=== PATIENT | female | born 1995 | race Asian ===

== ENCOUNTER 2023-03-20 08:00 | Outpatient (CLI) | payer OTHER ==
[2023-03-20 16:03] LABS: BILIRUBIN,URINE NEGATIVE (NEGATIVE); GLUCOSE, URINE (UA) 250 mg/dL (NEGATIVE); KETONES,URINE (UA) NEGATIVE (NEGATIVE); LEUKOCYTE ESTERASE, URINE NEGATIVE (NEGATIVE); NITRITE,URINE NEGATIVE (NEGATIVE); OCCULT BLOOD,URINE NEGATIVE (NEGATIVE); PH,URINE 6.5 PH (5.0-7.5); PROTEIN,URINE NEGATIVE (NEGATIVE); UROBILINOGEN,URINE 0.2 (NORMAL) E.U./dL (NORMAL)
[2023-03-20 16:04] LABS: CLARITY,URINE CLEAR (CLEAR)
[2023-03-20 16:14] LABS: BACTERIA,URINE None Seen /HPF (None Seen); RBC,URINE None Seen /HPF (0-5); SQUAMOUS EPITHELIAL CELL,UR FEW Squamous (<= Few); WBC,URINE 0-3 /HPF (0-5)
== END 2023-03-20 23:59 | disposition home or self-care (01) ==
LOC: LAB.WC 08:00
PROVIDERS: ATTEND Obstetrics & Gynecology
DX: Z34.00 Encounter for supervision of normal first pregnancy, unspecified trimester (principal)
CPT/HCPCS: 81001; 87086

== ENCOUNTER 2023-03-31 12:40 | Outpatient (CLI) | payer OTHER ==
--- NOTE | 2023-03-31 14:25 | Ultrasound Report ---
PROCEDURE: OB First Trimester w/TV INDICATIONS: POSITIVE TEST OUTSIDE/PRIOR DATING DATA: Last menstrual period (LMP): 02/01/2023. LMP-based estimated date of delivery (CODY): 11/08/2023. First dating scan (date and location): 03/31/2023 today. Estimated date of delivery (CODY) from first dating scan: 11/12/2023. TECHNIQUE: Real-time scanning was performed of the fetus and maternal pelvic organs, with image documentation. Endovaginal scanning was also performed to better visualize the fetus and maternal ovaries. COMPARISON: None. FINDINGS: Intrauterine gestational sac present. Embryo: 1.4 cm Heart rate: 153 bpm. Other: Small perigestational hemorrhage measuring 1.9 x 1.5 cm.. Yolk sac is present. Maternal organs: Ovaries appear within normal limits. IMPRESSION: Intrauterine with estimated gestational age is 7 weeks and 5 days. heart motion detec anabella Reviewed by: Willie Catalan MD on 03/31/2023 2:24 PM PST Approved by: Willie Catalan MD on 03/31/2023 2:24 PM PST Station ID: [id number]
== END 2023-03-31 12:41 | disposition home or self-care (01) ==
LOC: DI 12:40
PROVIDERS: ATTEND Obstetrics & Gynecology
DX: Z34.01 Encounter for supervision of normal first pregnancy, first trimester (principal)

== ENCOUNTER 2023-04-14 12:48 | Outpatient (CLI) | payer OTHER ==
[2023-04-14 18:01] LABS: BASOPHILS % (AUTO) 0.6 %; EOSINOPHILS % (AUTO) 0.5 %; HCT - HEMATOCRIT 35.1 % (37.0-47.0); HGB - HEMOGLOBIN 10.7 g/dL (12.0-16.0); LYMPHOCYTES # (AUTO) 1.3 10^3/uL (1.5-3.5); LYMPHOCYTES % (AUTO) 20.4 %; MEAN CORPUSCULAR HEMOGLOBIN 20.7 pg (27.0-31.0); MEAN CORPUSCULAR HGB CONC 30.5 g/dL (32.0-36.0); MONOCYTES # (AUTO) 0.5 10^3/uL (0.0-1.0); MONOCYTES % (AUTO) 6.9 %; NEUTROPHILS # (AUTO) 4.7 10^3/uL (1.5-6.6); NEUTROPHILS % (AUTO) 71.4 %; PLT - PLATELET COUNT 205 10^3/uL (130-450); RED BLOOD COUNT 5.16 10^6/uL (4.20-5.40); RED CELL DISTRIBUTION WIDTH 15.4 % (12.0-15.0); WHITE BLOOD COUNT 6.5 x10^3/uL (4.8-10.8)
[2023-04-14 18:08] LABS: SLIDE REVIEW? Indicated
[2023-04-14 19:06] LABS: PLATELET MORPHOLOGY A (NORMAL)
[2023-04-15 07:09] LABS: HCV AB Non Reactive (Non Reactive)
[2023-04-15 08:09] LABS: HBsAG SCREEN Negative (Negative); RPR Non Reactive (Non Reactive)
[2023-04-15 09:09] LABS: HIV SCREEN 4TH GENERATION Non Reactive (Non Reactive); VARICELLA-ZOSTER AB IGG 2729 index (Immune >165)
== END 2023-04-14 12:49 | disposition home or self-care (01) ==
LOC: LAB.N 12:48
PROVIDERS: ATTEND Obstetrics & Gynecology
DX: Z34.00 Encounter for supervision of normal first pregnancy, unspecified trimester (principal); Z36.89 Encounter for other specified antenatal screening
CPT/HCPCS: 36415; 85025; 86592; 86762; 86787; 86803; 86850; 86900; 86901; 87340; 87389

== ENCOUNTER 2023-04-17 08:00 | Outpatient (CLI) | payer OTHER ==
[2023-04-17 23:25] LABS: CHLAMYDIA TRACHOMATIS DNA NEGATIVE (NEGATIVE); NEISSERIA GONORRHOEAE DNA NEGATIVE (NEGATIVE); TRICHOMONAS VAGINALIS DNA NEGATIVE (NEGATIVE)
== END 2023-04-17 23:59 | disposition home or self-care (01) ==
LOC: LAB.WC 08:00
PROVIDERS: ATTEND Nurse Practitioner
DX: Z11.3 Encounter for screening for infections with a predominantly sexual mode of transmission (principal)
CPT/HCPCS: 87491; 87591; 87661

== ENCOUNTER 2023-05-29 13:06 | Outpatient (CLI) | payer OTHER ==
[2023-05-31 21:08] LABS: AFP MOM 1.02 (.); AFP VALUE 42.5 ng/mL (.); DIA MOM 0.71 (.); DIA VALUE 120.84 pg/mL (.); DSR (BY AGE) 1 IN 930 (.); DSR (SECOND TRIMESTER) 1 IN 10000 (.); GEST. AGE ON COLLECTION DATE 16.7 WEEKS (.); HCG MOM 0.84 (.); HCG VALUE 34897 mIU/mL (.); INSULIN DEP DIABETES No (.); MATERNAL AGE AT EDD 26.9 yr (.); MULTIPLE GESTATION No (.); OPEN SPINA BIFIDA RISK 1 IN 10000 (.); RACE Other (.); RESULTS Report (.); TEST RESULTS *Screen Negative* (.); TRISOMY 18 RISK Not increased (.); UE3 MOM 1.54 (.); UE3 VALUE 1.81 ng/mL (.); WEIGHT 127 lbs (.)
== END 2023-05-29 13:07 | disposition home or self-care (01) ==
LOC: LAB.N 13:06
PROVIDERS: ATTEND Obstetrics & Gynecology
DX: Z36.0 Encounter for antenatal screening for chromosomal anomalies (principal)
CPT/HCPCS: 36415; 81511

== ENCOUNTER 2023-06-23 15:57 | Outpatient (CLI) | payer OTHER ==
--- NOTE | 2023-06-24 19:11 | Ultrasound Report ---
PROCEDURE: OB Anatomy Scan INDICATIONS: SUPERVISION OF OUTSIDE/PRIOR DATING DATA: Last menstrual period (LMP): 02/01/2023. LMP-based estimated date of delivery (CODY): 11/08/2023. First dating scan (date and location): 03/31/2023, [place]. Estimated date of delivery (CODY) from first dating scan: 11/12/2023. The below data below was generated using the clinical CODY of 11/12/2023 TECHNIQUE: Real-time scanning was performed of the fetus, with image documentation and biometric measurements. Endovaginal scanning: Not performed. COMPARISON: OB ultrasound on March 31, 2023 FINDINGS: Markedly limited exam secondary to body habitus/ position. General: A single living intrauterine gestation is present. Presentation: Breech Placenta: Placental position is posterior, without previa. Amniotic fluid index: 10 cm, within normal limits for gestational age. heart rate: 145 beats per minute. Maternal cervical canal: 5.1 cm long; normal length is 2.5 cm or more. biometrics: Biparietal diameter: 4.3 cm, 19 weeks and 0 days, 22.5% Head circumference: 16.6 cm, 19 weeks and 2 days, 23.8% Abdominal circumference: 14.3 cm, 19 weeks and 5 days, 42.9% Femur length: 3.28 cm, 20 weeks and 2 days, 62.3% Estimated gestational age from initial scan: 19 weeks and 5 days Composite gestational age from present scan: 19 weeks and 3 days Estimated weight and percentile: 316.3 g, 53% Measurement variability in biometric dating: +/- 10 days from 12-20 weeks gestation, +/- 2 weeks from 20-30 weeks gestation, +/- 3 weeks at 30 weeks gestation or later. Anatomic survey: Neuro: Ventricles are normal at less than 10 mm. Cisterna magna is normal at 3-11 mm. Cerebellum i s normal in size and morphology. Nuchal skin fold: Normal at less than 6 mm between 14 and 20 weeks gestational age. Face: Bilateral orbits are normal. The nose and lips are not well seen. Spine: No evidence for spina bifida. Heart: Not well seen. Diaphragm: Not well seen. Stomach: Normal. Kidneys: No hydronephrosis. Normal is less than 5 mm in 2nd trimester, less than 7 mm in 3rd trimester. Cord: 3 vessel cord has orthotopic insertion. Bladder: Normal in size. Extremities: Bilateral upper extremities are normal. Bilateral lower extremities are partially visual ized. IMPRESSION: Markedly limited exam secondary to body habitus/ position. 1.Single living intrauterine gestation in breech presentation. Estimated gestational age from current scan is 19 weeks and 3 days. 2.Normal interval growth. 3.The nose/lips, profile, diaphragm, lower extremities and cardiac views are well seen. Attention on follow-up. Reviewed by: Chris Wright MD on 06/24/2023 7:10 PM PST Approved by: Chris Wright MD on 06/24/2023 7:10 PM PST Station ID: [id number]
== END 2023-06-23 15:58 | disposition home or self-care (01) ==
LOC: DI 15:57
PROVIDERS: ATTEND Obstetrics & Gynecology
DX: O32.1XX0 Maternal care for breech presentation, not applicable or unspecified (principal); Z3A.19 19 weeks gestation of pregnancy

== ENCOUNTER 2023-07-10 16:01 | Outpatient (CLI) | payer OTHER ==
--- NOTE | 2023-07-11 11:31 | Ultrasound Report ---
PROCEDURE: OB Follow up INDICATIONS: SUPERVISION OF OUTSIDE/PRIOR DATING DATA: Last menstrual period (LMP): 02/01/2023. LMP-based estimated date of delivery (CODY): 11/08/2023. First dating scan (date and location): 03/31/2023. Estimated date of delivery (CODY) from first dating scan: 11/12/2023. The below data below was generated using the ultrasound CODY of 11/12/2023 TECHNIQUE: Real-time scanning was performed of the fetus, with image documentation and biometric measurements. Endovaginal scanning: Not performed. Exam limited due to positioning. COMPARISON: OB ultrasound 06/23/2023 FINDINGS: General: A single living intrauterine gestation is present. Presentation: Vertex Placenta: Placental position is posterior, without previa. Amniotic fluid index: 13.8 cm, within normal limits for gestational age. Largest pocket 5.2 cm. heart rate: 135 beats per minute. Maternal cervical canal: 4.5 cm long; normal length is 2.5 cm or more. Closed. Estimated gestational age from initial scan: 22 weeks 1 day Other: profile, lower extremities, four-chamber view of the heart, LVOT and diaphragm are seen. RVOT and nose and lips are again not well seen. IMPRESSION: 1. David living intrauterine at 22 weeks 1 day based on prior dating. 2. Normal placenta and amniotic fluid. 3. profile, lower extremities, four-chamber view of the heart, LVOT and diaphragm are within no rmal limits. RVOT and nose and lips are again not well seen due to positioning. Follow-up OB ultrasound is r ecommended. Reviewed by: Leander Choi MD on 07/11/2023 11:30 AM PST Approved by: Leander Choi MD on 07/11/2023 11:30 AM PST Station ID: [id number]
== END 2023-07-10 16:02 | disposition home or self-care (01) ==
LOC: DI 16:01
PROVIDERS: ATTEND Obstetrics & Gynecology
DX: Z34.02 Encounter for supervision of normal first pregnancy, second trimester (principal)

== ENCOUNTER 2023-08-08 11:12 | Outpatient (CLI) | payer OTHER ==
[2023-08-08 17:42] LABS: HCT - HEMATOCRIT 35.6 % (37.0-47.0); HGB - HEMOGLOBIN 10.8 g/dL (12.0-16.0); MEAN CORPUSCULAR HGB CONC 30.3 g/dL (32.0-36.0); MEAN CORPUSCULAR VOLUME 72.5 fL (81.0-99.0); MEAN PLATELET VOLUME 13.3 fL (7.9-10.8); RED BLOOD COUNT 4.91 10^6/uL (4.20-5.40)
== END 2023-08-08 11:13 | disposition home or self-care (01) ==
LOC: LAB.N 11:12
PROVIDERS: ATTEND Obstetrics & Gynecology
DX: Z34.00 Encounter for supervision of normal first pregnancy, unspecified trimester (principal)
CPT/HCPCS: 36415; 82950; 85027

== ENCOUNTER 2023-09-05 08:00 | Outpatient (CLI) | payer OTHER ==
[2023-09-05 18:06] LABS: PROTEIN/CREATININE RATIO,URINE 0.3 (<=0.2)
== END 2023-09-05 23:59 | disposition home or self-care (01) ==
LOC: LAB.WC 08:00
PROVIDERS: ATTEND Nurse Practitioner
DX: R10.11 Right upper quadrant pain (principal)
CPT/HCPCS: 82570; 84156

== ENCOUNTER 2023-10-11 17:04 | Outpatient (CLI) | payer OTHER | END 2023-10-11 17:05 | disposition home or self-care (01) | LOC: LAB.WC 17:04 | PROVIDERS: ATTEND Obstetrics & Gynecology | DX: Z36.85 Encounter for antenatal screening for Streptococcus B (principal) | CPT/HCPCS: 87797 ==

== ENCOUNTER 2023-10-30 08:53 | Outpatient (CLI) | payer OTHER ==
--- NOTE | 2023-10-30 10:49 | Ultrasound Report ---
PROCEDURE: OB Follow up INDICATIONS: EXCESSIVVE WEIGHT GAIN IN OUTSIDE/PRIOR DATING DATA: Last menstrual period (LMP): 02/01/2023. LMP-based estimated date of delivery (CODY): 11/08/2023. First dating scan (date and location): 03/31/2023. Estimated date of delivery (CODY) from first dating scan: 11/12/2023. TECHNIQUE: Real-time scanning was performed of the fetus, with image documentation and biometric measurements. COMPARISON: 07/10/2023 FINDINGS: General: A single living intrauterine gestation is present. Presentation: Vertex Placenta: Placental position is fundal, without previa. Amniotic fluid index: 14.8 cm, within normal limits for gestational age. heart rate: 140 beats per minute. Maternal cervical canal: 4.2 cm cm long; normal length is 2.5 cm or more. BPD is 8.97 cm, 24.7%, 36 weeks and 2 days Head circumference is 33 cm, 19.1%, 37 weeks and 4 days Abdominal circumference is 34.6 cm, 77.9%, 38 weeks and 4 days Femur length is 7.45 cm, 52.6%, 38 weeks and 1 day Estimated gestational age is 38 weeks and 1 day. Biometry today measures 37 weeks and 5 days. EFW at the 60.9 percentile, 3380 g. IMPRESSION: Living intrauterine gestation in vertex presentation. Normal CUONG. EFW at the 60.9 percentile, within normal limits. Reviewed by: Willie Catalan MD on 10/30/2023 10:47 AM PDT Approved by: Willie Catalan MD on 10/30/2023 10:47 AM PDT Station ID: [id number]
== END 2023-10-30 08:54 | disposition home or self-care (01) ==
LOC: DI 08:53
PROVIDERS: ATTEND Obstetrics & Gynecology
DX: O26.03 Excessive weight gain in pregnancy, third trimester (principal); Z3A.38 38 weeks gestation of pregnancy

== ENCOUNTER 2023-11-02 20:35 | Outpatient (CLI) | payer OTHER ==
[2023-11-02 21:23] VITALS: BP 130/74
--- NOTE | 2023-11-06 16:40 | PROCEDURE REPORT ---
- HPI Diagnosis/Indication for NST: Other (contractions) Current EDU 11/08/23 Gestation 39 Weeks and 1 Days 1 Para 0 Vital Signs Temperature 98.6 F 11/02/23 20:48 Heart Rate 78 11/02/23 20:48 Respiratory Rate 17 11/02/23 20:48 Blood Pressure 144/85 H 11/02/23 20:48 Temperature 98.7 F 11/02/23 21:14 Heart Rate 77 11/02/23 21:14 Respiratory Rate 17 11/02/23 20:48 Blood Pressure 130/74 11/02/23 21:14 O2 Saturation If not protocol: Oxygen Flow, liters/minute - NST Procedure NST Procedure Start Date 11/02/23 Start Time 20:48 Stop Time 21:10 Vibroacoustic Stimulation Used No Patient States Movement Yes - Results and Plan Findings/Impression: Reactive, Cat 1 Plan: Follow up as scheduled. Labor precautions.
== END 2023-11-02 21:16 | disposition home or self-care (01) ==
LOC: WFO 20:35 → FBP 20:37 → WFO 21:16
PROVIDERS: ATTEND Obstetrics & Gynecology
DX: O47.1 False labor at or after 37 completed weeks of gestation (principal); Z3A.39 39 weeks gestation of pregnancy
CPT/HCPCS: 59025; 99213

== ENCOUNTER 2023-11-03 00:44 | Inpatient (IN) | payer OTHER ==
[2023-11-03] MEDS ORDERED: LACTATED RINGERS 1,000 ML ONE (01:05)
[2023-11-03] MEDS ORDERED: LABETALOL 20 MG/4 ML SYRINGE IVP PRN ×3 (01:10)
[2023-11-03] MEDS ORDERED: miSOPROStoL 200 MCG TABLET BC PRN (01:10)
[2023-11-03] MEDS ORDERED: TRANEXAMIC ACID IN NACL 1,000 MG/100 ML BAG IV PRN (01:10)
[2023-11-03] MEDS ORDERED: miSOPROStoL 200 MCG TABLET PR PRN (01:10)
[2023-11-03] MEDS ORDERED: OXYTOCIN 10 UNIT/ML VIAL IM PRN (01:10)
[2023-11-03] MEDS ORDERED: TERBUTALINE 1 MG/ML VIAL SUBQ PRN (01:10)
[2023-11-03] MEDS ORDERED: METHYLERGONOVINE 0.2 MG/ML VIAL IM PRN (01:10)
[2023-11-03] MEDS ORDERED: hydrALAZINE INJ 20 MG/ML VIAL IVP PRN ×2 (01:10)
[2023-11-03] MEDS ORDERED: NIFEdipine 10 MG CAPSULE PO PRN (01:10)
[2023-11-03] MEDS ORDERED: SODIUM CHLORIDE FLUSH 0.9% 10 ML SYRINGE IVP PRN (01:10)
[2023-11-03] MEDS ORDERED: lidocaine 1% 20 ML MDV ID PRN (01:10)
[2023-11-03] MEDS ORDERED: CARBOPROST TROMETHAMINE 250 MCG/ML VIAL IM PRN (01:10)
[2023-11-03] MEDS: fentaNYL 100 MCG/2 ML VIAL IVP PRN (01:22)
[2023-11-03 01:38] LABS: BASOPHILS % (AUTO) 0.2 %; EOSINOPHILS # (AUTO) 0.1 10^3/uL (0.0-0.7); EOSINOPHILS % (AUTO) 0.3 %; HCT - HEMATOCRIT 36.3 % (37.0-47.0); HGB - HEMOGLOBIN 11.4 g/dL (12.0-16.0); LYMPHOCYTES # (AUTO) 2.2 10^3/uL (1.5-3.5); LYMPHOCYTES % (AUTO) 13.4 %; MEAN CORPUSCULAR HEMOGLOBIN 22.4 pg (27.0-31.0); MEAN CORPUSCULAR HGB CONC 31.4 g/dL (32.0-36.0); MEAN CORPUSCULAR VOLUME 71.5 fL (81.0-99.0); MONOCYTES # (AUTO) 1.2 10^3/uL (0.0-1.0); MONOCYTES % (AUTO) 7.2 %; NEUTROPHILS # (AUTO) 12.5 10^3/uL (1.5-6.6); NEUTROPHILS % (AUTO) 77.2 %; PLT - PLATELET COUNT 189 10^3/uL (130-450); RED BLOOD COUNT 5.08 10^6/uL (4.20-5.40); RED CELL DISTRIBUTION WIDTH 15.1 % (12.0-15.0); WHITE BLOOD COUNT 16.2 x10^3/uL (4.8-10.8)
[2023-11-03] MEDS ORDERED: SODIUM CHLORIDE FLUSH 0.9% 10 ML SYRINGE IVP SCH (02:00)
[2023-11-03] MEDS ORDERED: ROPIVACAINE 0.2% 200 MG/100 ML BAG EP ONE (02:12)
[2023-11-03] MEDS ORDERED: LIDOCAINE 2%-EPI 1:100000 20 ML MDV ONE (02:12)
--- NOTE | 2023-11-03 02:18 | HISTORY & PHYSICAL EXAMINATION ---
Admit History - Visit Reason Visit Reason: Contractions - : 1 Parity: 0 Premature: 0 Ectopic: 0 : 0 Care: positive: [facility] Risk/History: positive: None Complications This : positive: None Smoking Status: Never smoker - Mother's Labs Mother's Blood Type: positive: O Mother's RH: positive: Positive GBS: positive: Group B Step Negative Rubella Status: positive: Immune - Other Maternal History Other Maternal History: HPI: This 27yo @ 39+2weeks by LMP and confirmed by 7+5 week ultrasound. She started aleksandra yesterday about 1700 after SVE/ membrane sweep in clinic. She had came to triage yesterday evening but remained unchanged and opted to labor at home until things intensified. Her water broke spontaneous at about 0000 (clear) and she presented to L&D shortly thereafter at 0051. Upon return to L&D her cervix was 6/80/-2 and vertex. She has been a patient of [facility] women[facility] for the duration of her which has remained uncomplicated. No Headache, visual changes or right upper quadrant abdominal pain. Denies nausea and vomiting. Denies urinary urgency or dysuria. ROS: All other symptoms reviewed and were negative except per HPI. LMP: 02/01/2023 CODY by LMP: 11/08/2023 Initial US Date 03/31/2023, US Age 7 weeks 5 days, CODY by ultrasound: 11/12/2023 Final CODY: 11/08/2023 OB Hx: G1: Current Medical Hx: No significant Surgical Hx: None Social Hx: Monogamous with male partner. Stopped drinking alcohol due to . Denies current use of tobacco, marijuana or other recreational drugs. Former tobacco user. Reports that she is safe in current relationship. Family Hx: Denies family history of congenital anomalies, Cystic Fibrosis or chromosomal abnormalities Allergies: NKDA Medications: PNV, FeSO4 FOB: Vaibhav (pronounced "October") - in the [employer] - deploys in October - getting back from last minute detachment 3 jun. - her mom will come after the baby is born. Excessive maternal weight gain - Growth US 10/29 vertex, CUONG wnl, EFW 60.9%ramses Wakefield is a nurse at the hospital med surg. Pre- Weight: 128 BMI: 20.86 Blood type: O+ Antibody: negative CBC: PLT 205 HCT 35.1 HGB 10.7 RUB: immune VZV: immune HBsAg: negative HepC: N-R RPR/AB-EIA: N-R HIV: N-R PAP: can't recall when- denies any abnormals. Will discuss again PP. GC/CT: Negative HSV: denies Genetic testing:QUAD -Negative Covid: vaccinated Flu:2022 FAS: ordered 05/19-scheduled 06/23 @1615 Placenta: posterior w/o previa Cord:3VC CUONG: 10cm EFW:316.3g 53rd%ile Nose/lips, profile, diaphragm, lower extremities, and cardiac views not well seen F/U US 07/10- RVOT, nose/lips not well seen again. Profile, lower extremities, 4 chamber heart, LVOT and diaphragm WNL~ recommend another f/u. 07/24/23- FAS MFM WNL 50gm OGCT:84 TDAP:Given 08/24 Breast Pump:08/07 3rd trimester H/H 10.8/35.6 PLT 205 GBS: negative Physical exam: Normocephalic, atraumatic Heart RRR w/o M/G/R Lungs CTAB Abdomen gravid, soft, nontender. EFW 3000g FHR baseline 140, moderate variability, + accelerations, early decelerations Contractions palpate moderate every 2.5-3 minutes with soft resting tone SVE 6/80/-2, vertex, ruptured (clear) Bilateral LE's no edema Mood is good. Assessment: 27 yo @ 39+2 weeks gestation by LMP, confirmed by 7+5 wk U/S Active labor FHR 140, Cat I GBS NEG Plan: Admit to [facility] for Expectant management Epidural per maternal request. Intermittent monitoring. Continuous monitoring after epidural and when otherwise indicated. Anticipate . DICK Silva, Student Nurse Helper Shear Operator - [facility] Current EDU 11/08/23 Gestation 39 Weeks and 2 Days 1 Vital Signs Temperature 36.8 C 11/03/23 00:58 Temperature 36.8 C 11/03/23 01:33 Heart Rate 81 11/03/23 01:33 Respiratory Rate 17 11/03/23 01:33 Blood Pressure 133/80 H 11/03/23 01:33 O2 Saturation If not protocol: Oxygen Flow, liters/minute - NST Procedure NST Procedure Start Time 20:48 Stop Time 21:10 Meds/Allgy - Home Medications Home Medications: Ambulatory Orders Medication Instructions Recorded Confirmed Ferrous Sulfate [Feosol] 11/03/23 No122/Iron/Folic Acid 1 each PO 11/03/23 [ Multi Tablet] - Allergies Allergies/Adverse Reactions: Allergies Allergy/AdvReac Type Severity Reaction Status Date / Time No Known Drug Allergies Allergy Verified 11/03/23 01:45 Physical - Abdominal Exam Vital Signs: Temp Pulse Resp BP Pulse Ox O2 Flow Rate 36.8 C 81 17 133/80 H 11/03/23 01:33 11/03/23 01:33 11/03/23 01:33 11/03/23 01:33 Contraction Frequency (min/apart): 2-3.5 Contraction Intensity: positive: Strong Uterine Resting Tone: positive: Soft - Monitoring Heart Rate Baseline: 140 Strip Review: positive: Category I - Presentation Presentation: positive: Vertex - Vaginal Exam Membranes: positive: Membranes ruptured Dilation (in cm): 6 Effacement (%): 80 Station: positive: -2 - Speculum Exam Speculum Exam Performed: positive: No Plan for Labor - Plan For Labor I expect patient to be DC'd or transferred within 96 hours.: Yes
[2023-11-03] MEDS: LACTATED RINGERS 1,000 ML IV PRN (02:26)
[2023-11-03] MEDS ORDERED: METOCLOPRAMIDE 10 MG/2 ML VIAL IVP PRN (03:30)
[2023-11-03] MEDS ORDERED: ePHEDrine 50 MG/ML VIAL IVP PRN (03:30)
[2023-11-03] MEDS ORDERED: ROPIVACAINE 0.2% 200 MG/100 ML BAG EP PRN (03:30)
[2023-11-03] MEDS ORDERED: diphenhydrAMINE INJ 50 MG/ML VIAL IVP PRN (03:30)
[2023-11-03] MEDS ORDERED: NALBUPHINE 10 MG/ML AMP IVP PRN (03:30)
[2023-11-03] MEDS ORDERED: NALOXONE 0.4 MG/ML VIAL IVP PRN (03:30)
[2023-11-03] MEDS ORDERED: ONDANSETRON 4 MG/2 ML VIAL IVP PRN (03:30)
--- NOTE | 2023-11-03 03:33 | ANESTHESIA ---
Pre-Anesthesia VS, & Labs - Diagnosis active labor pain - Procedure labor epidural Vital Signs: Temp Pulse Resp BP Pulse Ox O2 Flow Rate 36.8 C 81 17 133/80 H 11/03/23 01:57 11/03/23 01:57 11/03/23 01:57 11/03/23 01:57 Height: 5 ft 6 in Weight (kg): 77.111 kg Body Mass Index: 27.4 BMI Classification: Overweight - NPO Other - Is Patient ?: Yes - Lab Results Current Lab Results: Laboratory Tests 11/03/23 01:10: WBC 16.2 H, RBC 5.08, Hgb 11.4 L, Hct 36.3 L, MCV 71.5 L, MCH 22.4 L, MCHC 31.4 L, RDW 15.1 H, Plt Count 189, MPV TNP, Neut # (Auto) 12.5 H, Lymph # (Auto) 2.2, [place] # (Auto) 1.2 H, Eos # (Auto) 0.1, Baso # (Auto) 0.0, Absolute Nucleated RBC 0.00, Nucleated RBC % 0.0 11/03/23 01:10: Blood Type O POSITIVE, Antibody Screen NEGATIVE Fish Bones: 11/03/23 01:10 Home Medications and Allergies Home Medications: Ambulatory Orders Ferrous Sulfate [Feosol] 11/03/23 No122/Iron/Folic Acid [ Multi Tablet] 1 each PO 11/03/23 Active Medications Carboprost Tromethamine (Carboprost Tromethamine 250 Mcg/Ml Vial) 250 mcg IM .ONCE PRN PRN Reason: Hemorrhage Fentanyl (Fentanyl 100 Mcg/2 Ml Vial) 50 mcg IVP Q1H PRN PRN Reason: Severe Pain (score 7-10) Last Admin: 11/03/23 01:22 Dose: 50 mcg Hydralazine HCl (Hydralazine Inj 20 Mg/Ml Vial) 5 - 10 mg IVP Q20M PRN; Protocol PRN Reason: SBP> or= 160 OR DBP> or= 110 Hydralazine HCl (Hydralazine Inj 20 Mg/Ml Vial) 10 mg IVP .ONCE PRN; Protocol PRN Reason: SBP> or= 160 OR DBP> or= 110 Lactated Ringer's (Lr) 500 mls @ 999 mls/hr IV PRN PRN PRN Reason: see comments Last Admin: 11/03/23 03:11 Dose: 999 mls/hr Oxytocin/Sodium Chloride (Pitocin/Sodium Chloride) 500 mls @ 999 mls/hr IV PRN PRN; Protocol PRN Reason: POST- HEMORR PREVENTION Tranexamic Acid (Tranexamic 1,000 Mg/100ml-Nacl) 1,000 mg in 100 mls @ 600 mls/hr IV Q30M PRN PRN Reason: EBL >1200mL and within 3hr Labetalol HCl (Labetalol 20 Mg/4 Ml Syringe) 20 - 80 mg IVP Q10M PRN; Protocol PRN Reason: SBP> or= 160 OR DBP> or= 110 Labetalol HCl (Labetalol 20 Mg/4 Ml Syringe) 20 mg IVP .ONCE PRN; Protocol PRN Reason: SBP> or= 160 OR DBP> or= 110 Labetalol HCl (Labetalol 20 Mg/4 Ml Syringe) 20 - 40 mg IVP Q10M PRN; Protocol PRN Reason: SBP> or= 160 OR DBP> or= 110 Lidocaine HCl (Lidocaine 1% 20 Ml Mdv) 20 ml ID .ONCE PRN PRN Reason: PERINEAL REPAIR Stop: 11/06/23 01:10 Methylergonovine Maleate (Methylergonovine 0.2 Mg/Ml Vial) 0.2 mg IM .ONCE PRN PRN Reason: Hemorrhage Misoprostol (Misoprostol 200 Mcg Tablet) 600 mcg BC .ONCE PRN PRN Reason: Hemorrhage Misoprostol (Misoprostol 200 Mcg Tablet) 800 mcg [place] .ONCE PRN PRN Reason: Hemorrhage Nifedipine (Nifedipine 10 Mg Capsule) 10 - 20 mg PO Q20M PRN; Protocol PRN Reason: SBP> or= 160 OR DBP> or= 110 Oxytocin (Oxytocin 10 Unit/Ml Vial) 10 unit IM .ONCE PRN PRN Reason: Step One if no IV access. Sodium Chloride (Sodium Chloride Flush 0.9% 10 Ml Syringe) 10 ml IVP PRN PRN PRN Reason: NEEDED PER PROVIDER ORDERS Sodium Chloride (Sodium Chloride Flush 0.9% 10 Ml Syringe) 10 ml IVP Q8H PATTI Terbutaline Sulfate (Terbutaline 1 Mg/Ml Vial) 0.25 mg SUBQ .ONCE PRN PRN Reason: Tachystole Ferrous Sulfate [Feosol] 06/21/24 No122/Iron/Folic Acid [ Multi Tablet] 1 each PO 11/03/23 Allergies/Adverse Reactions: Allergies Allergy/AdvReac Type Severity Reaction Status Date / Time No Known Drug Allergies Allergy Verified 11/03/23 01:45 Anes History & Medical History - Anesthetic History Anesthesia Complications: reports: No previous complications Family history of Anesthesia Complications: Denies Family history of Malignant Hyperthermia: Denies - Medical History Cardiovascular: reports: None Pulmonary: reports: None Gastrointestinal: reports: None Urinary: reports: None Neuro: reports: None Musculoskeletal: reports: None Endocrine/Autoimmune: reports: None Blood Disorders: reports: None Skin: reports: None Smoking Status: Never smoker Psychosocial: reports: No issues indicated - Obstetrical History : 1 Parity: 0 Events: reports: None Complications: reports: None Exam General: Alert, Oriented x3, Cooperative Dental: WNL Mouth Openin Fingerbreadth Neck Mobility: Normal Mallampati classification: I Thyromental Distance: 4-6 cm Respiratory: Lungs clear Cardiovascular: Regular rate Plan Anesthesia Type: Epidural Consent for Procedure(s) Verified and Reviewed: Yes Code Status: Attempt Resuscitation ASA classification: 2-Mild systemic disease Is this case an emergency?: No
--- NOTE | 2023-11-03 04:45 | PROVIDER PROGRESS NOTE ---
Labor Progress Note - Uterine Monitoring Uterine Monitoring Mode: positive: External toco Contraction Frequency (min/apart): 2-3 Contraction Intensity: positive: Strong Uterine Resting Tone: positive: Soft - Monitoring Monitor Mode: positive: External ultrasound Heart Rate Baseline: 135-140 Heart Rate Variability: positive: Moderate (6-25 bmp) Accelerations: positive: Present, 15x15 Decelerations: positive: Late, Variable Strip Review: positive: Category I, Category II - Vaginal Exam Dilation (in cm): 8 Effacement (%): 100 Station: -2 - Labor Progress Note Labor Progress Note/Additional Text: S: Right side lying. Comfortable with epidural. Dozing. Frequent peanut ball and other position changes with RN. O: FHR baseline 140, moderate variability, + accels, + early decels, intermittent variables with resolution to baseline Overall reassuring with moderate variability maintained throughout. Contractions palpate strong with soft resting tone. SVE 8/100/-2 Vertex. Membranes membranes ruptured A: 27yo @ 39+2wks gestation spontaneous labor onset and progression. FHR 135-140, Category I-II GBS neg P: Continuous monitoring. Maintain epidural for labor anesthesia. maintain epidural for pain management encourage rotations in bed on peanut ball Anticipate . DICK Silva, Student Nurse Director Of Promotions
[2023-11-03] MEDS: OXYTOCIN/SODIUM CHLORIDE 500 ML IV PRN (06:55)
--- NOTE | 2023-11-03 07:22 | DELIVERY NOTE ---
<Lucia Finn - Last Filed: 11/03/23 07:20> Delivery Note - Labor Labor: positive: Spontaneous - Infant Delivery Method Delivery Method: positive: Spontaneous vaginal delivery - Presentation Presentation: positive: Vertex, OA - occiput anterior - Nuchal Cord Nuchal Cord: positive: None - Anesthetic Anesthetic Type: - Amniotic Fluid Description Amniotic Fluid Description: positive: Clear - Episiotomy Type Episiotomy Type: positive: None - Laceration Laceration: positive: 2nd degree, Labial, Perineal - Suture Suture Type: positive: Vicryl, Chromic Suture Size: positive: 2-0, 3-0 - Delivery Outcome Delivery Outcome: positive: Livebirth - : positive: Placed in direct skin contact with mother, Bulb syringe, Warmed, [place] used [place] sex: positive: Female - Cord Cord: positive: 3 vessels - Placenta Placenta: positive: Manual removal - Estimated Blood Loss Estimated Blood Loss (in cc): 800 - Delivery Comments (Free Text/Narrative) Delivery Comments (Free Text/Narrative): This 27 -year-old, G 1 P 0 @ 39+2 weeks gestation by 1st trimester u/s presented on 11/03/2023 @ 0051 time in active labor and in good condition. Cervix was 6/80/-2 and Vertex presentation by exam. GBS NEGATIVE. Labor progressed without augmentation. FHR pattern demonstrated 135-145 baseline with primarily category I tracing. Normal labor course. Epidural placed upon maternal request. SROM @ 0000 prior to her arrival. She then progressed to complete/complete @ 0509 and ready to deliver. second stage began @ 0520. : Normal spontaneous vaginal delivery of a viable female infant on 11/03/2023 @ 0610 no Nuchal corD. The was placed on maternal abdomen, st imulated, dried and placed skin to skin. Apgars 9 @ 1 min, and 9 @ 5 minutes. Pitocin administered via IV for hemostasis. The umbilical cord was allowed to stop pulsating at which time it was doubly clamped by delivering provider and cut by FOB. 3VC. Cord blood was obtained. Fundal massage and gently cord traction applied for active management of the third stage, placenta delivered spontaneously @ 0616. Later, a small retained fragment was removed by manual sweep. See MD addendum. EBL 800ML , primary source of blood loss = labial laceration. Placenta was WAS NOT sent to pathology. Thirty units of Pitocin were added to the IV fluid and allowed to run freely. A second bag of 30 of pit was also infused. Uterine massage was performed until uterus was deemed firm. Inspection of the perineum noted a 2nd degree perineal laceration and bilateral 1st degree labial tears. Repaired by . See MD addendum. Upon re-inspection the patient was hemostatic. Uterus again massaged and found to be firm. Needle and sponge counts were correct. Fourth stage: Uterine fundus firm and there is no excessive bleeding. The perineum, vagina and cervix were inspected and found to be intact. Vaginal and rectal examination following the repair was done. Tissues well approximated. /skin to skin initiated. Family bonding well. Both mother and baby are in stable condition. DICK Silva, Student Nurse Ice Cream Freezer Helper <Leann Li - Last Filed: 11/03/23 07:51> Delivery Note - Delivery Comments (Free Text/Narrative) Delivery Comments (Free Text/Narrative): I was present and participated in with DICK Silva and midwifery student. uncomplicated. 2nd degree laceration and bilateral labial lacerations noted. Due to very briskly bleeding laceration, I performed repair. 2nd degree laceration was repaired in the standard fashion. After completion of 2nd degree repair, increased bleeding was noted from the uterus and a uterine sweep was performed with small amount of membrane noted, no other retained tissue felt. I requested another bag of pitocin be administered. Repair was disrupted during uterine sweep and the 2nd degree laceration was re-approximated again. Left labial laceration also briskly bleeding and figure of eight stitch followed by running stitch was placed. Small oozing noted and pressure placed for several minutes. Hemostasis then achieved. Right labial laceration hemostatic and not repaired. Perineal hemostasis and good uterine tone noted at completion of procedure. Total EBL 800cc mostly from very briskly bleeding lacerations. Leann Li MD
[2023-11-03] MEDS ORDERED: HYDROCORTISONE 1% CREAM 28 GM TUBE PR PRN (08:39)
[2023-11-03] MEDS: ACETAMINOPHEN 500 MG TABLET PO SCH (09:11)
[2023-11-03] MEDS: IBUPROFEN 600 MG TABLET PO SCH (09:11)
--- NOTE | 2023-11-03 11:33 | PHARMACY PROGRESS NOTE ---
- Best Possible Medication History Admit Date and Time: 11/03/23 0110 Processed by: Pharmacy Secondary Source(s): Physician records As the person ultimately responsible for medication therapy, providers are able to order a medication from an existing home medication list in [facility] via the "Reconcile Routine" prior to Confirmation of that medication by support engineer. Such practice is discouraged except when the physician, in their clinical judgment, deems that a medical need exists for a medication without regard to previous use.
[2023-11-03] MEDS: WITCH HAZEL/GLYCERIN 1 PAD TOP PRN (12:48)
--- NOTE | 2023-11-03 12:50 | PROVIDER PROGRESS NOTE ---
Subjective - Prog Note Date Prog Note Date: 11/03/23 Prog Note Time: 12:48 - Subjective Pt reports feeling: Improved Subjective: Subjective: Patient reports she is doing well. Comfortable WITHOUT narcotic pain management Feels she may still be having some pain relief from epidural Lochia appropriate. Denies heavy bleeding. has not yet gotten out of bed. Plan established with RN to ambulate after lunch Tolerating oral intake. Diet: Regular. Has not yet voided post delivery. Patient is bonding with baby in room Objective - Vital Signs/Intake & Output Reviewed Vital Signs: Yes Vital Signs: Vital Signs x48h Temp 11/03/23 12:32 37.1 C Intake & Output: Intake & Output 10/31/23 11/01/23 11/02/23 11/03/23 23:59 23:59 23:59 23:59 Intake Total 500 Output Total 500 Balance 0 - Objective General Appearance: positive: No acute distress Eyes Bilateral: positive: Normal inspection Neck: positive: Nml inspection Respiratory: positive: No respiratory distress Skin: positive: Color nml, No rash, Warm Extremities: positive: Nml appearance Neurologic/Psychiatric: positive: Oriented x3, Motor nml, Sensation nml, Mood/affect nml - Lab Results Fish Bones: 11/03/23 01:10 Other Labs: Lab Results x24hrs 11/03/23 11/03/23 Range/Units 01:10 01:10 WBC 16.2 H (4.8-10.8) x10^3/uL RBC 5.08 (4.20-5.40) 10^6/uL Hgb 11.4 L (12.0-16.0) g/dL Hct 36.3 L (37.0-47.0) % MCV 71.5 L (81.0-99.0) fL MCH 22.4 L (27.0-31.0) pg MCHC 31.4 L (32.0-36.0) g/dL RDW 15.1 H (12.0-15.0) % Plt Count 189 (130-450) 10^3/uL MPV TNP Neut # (Auto) 12.5 H (1.5-6.6) 10^3/uL Lymph # (Auto) 2.2 (1.5-3.5) 10^3/uL [place] # (Auto) 1.2 H (0.0-1.0) 10^3/uL Eos # (Auto) 0.1 (0.0-0.7) 10^3/uL Baso # (Auto) 0.0 (0.0-0.1) 10^3/uL Absolute Nucleated RBC 0.00 x10^3/uL Nucleated RBC % 0.0 /100WBC Blood Type O POSITIVE Antibody Screen NEGATIVE - Other Results/Comments Other Results/Comments: Abdomen: Uterus firm. Below umbilicus. No guarding or rebound tenderness. ABX Reporting Has patient been on IV antibiotics over the past 48 hours?: No Assessment/Plan - Problem List (1) Vaginal delivery Impression: Assessment and Plan 27yo s/p the morning of 11/03/2023 - doing well - Routine care - Anticipate discharge tomorrow (2) Patient is a currently breast-feeding mother Impression: support as needed (3) Perineal laceration complicating delivery Impression: 2nd degree perineal laceration and bilateral labial lacerations. recommend continued scheduled IBU and tylenol x 48 hours. Continue with ice, topical management, standard perineal care (4) Blood loss Impression: CBC ordered for tomorrow am Will recommend continued iron supplementation . Standard Fall precautions
[2023-11-04 07:45] LABS: BASOPHILS % (AUTO) 0.3 %; EOSINOPHILS # (AUTO) 0.1 10^3/uL (0.0-0.7); EOSINOPHILS % (AUTO) 0.4 %; HCT - HEMATOCRIT 20.8 % (37.0-47.0); LYMPHOCYTES # (AUTO) 1.9 10^3/uL (1.5-3.5); MEAN CORPUSCULAR HEMOGLOBIN 22.5 pg (27.0-31.0); MEAN CORPUSCULAR HGB CONC 30.8 g/dL (32.0-36.0); MEAN PLATELET VOLUME 12.4 fL (7.9-10.8); MONOCYTES # (AUTO) 0.8 10^3/uL (0.0-1.0); MONOCYTES % (AUTO) 6.4 %; NEUTROPHILS # (AUTO) 9.8 10^3/uL (1.5-6.6); PLT - PLATELET COUNT 146 10^3/uL (130-450); RED BLOOD COUNT 2.85 10^6/uL (4.20-5.40); RED CELL DISTRIBUTION WIDTH 15.3 % (12.0-15.0); WHITE BLOOD COUNT 12.9 x10^3/uL (4.8-10.8)
[2023-11-04 07:51] LABS: HGB - HEMOGLOBIN 6.4 g/dL (12.0-16.0)
--- NOTE | 2023-11-04 09:57 | PROVIDER PROGRESS NOTE ---
<Lucia Finn - Last Filed: 11/04/23 10:41> Subjective - Prog Note Date Prog Note Date: 11/04/23 Prog Note Time: 09:42 - Subjective Pt reports feeling: No change Subjective: Subjective: Feeling tired, spent most of the night feeding baby and did not sleep well through the night. Feeling lightheaded and easily fatigued. Not feeling dizzy. Comfortable WITHOUT pain management Ambulating. Tolerating oral intake. Diet: Regular. Voiding without difficulty. Passing flatus. Denies BM. Patient is bonding with baby in room Breast feeding going okay. Difficulty with latch and sustained feeding through the night. Supplementing with formula this morning. Objective - Vital Signs/Intake & Output Reviewed Vital Signs: Yes Vital Signs: Vital Signs x48h Temp Pulse Resp BP 11/04/23 03:41 37.0 C 88 16 121/74 Intake & Output: Intake & Output 11/01/23 11/02/23 11/03/23 11/04/23 23:59 23:59 23:59 23:59 Intake Total 1500 Output Total 2300 Balance -800 - Objective Cardiovascular: positive: Tachycardia Skin: positive: Color nml Extremities: positive: Non-tender Neurologic/Psychiatric: positive: Oriented x3 - Lab Results Fish Bones: 11/04/23 07:06 Other Labs: Lab Results x24hrs 11/04/23 Range/Units 07:06 WBC 12.9 H (4.8-10.8) x10^3/uL RBC 2.85 L (4.20-5.40) 10^6/uL Hgb 6.4 L* (12.0-16.0) g/dL Hct 20.8 L (37.0-47.0) % MCV 73.0 L (81.0-99.0) fL MCH 22.5 L (27.0-31.0) pg MCHC 30.8 L (32.0-36.0) g/dL RDW 15.3 H (12.0-15.0) % Plt Count 146 (130-450) 10^3/uL MPV 12.4 H (7.9-10.8) fL Neut # (Auto) 9.8 H (1.5-6.6) 10^3/uL Lymph # (Auto) 1.9 (1.5-3.5) 10^3/uL [place] # (Auto) 0.8 (0.0-1.0) 10^3/uL Eos # (Auto) 0.1 (0.0-0.7) 10^3/uL Baso # (Auto) 0.0 (0.0-0.1) 10^3/uL Absolute Nucleated RBC 0.00 x10^3/uL Nucleated RBC % 0.0 /100WBC - Other Results/Comments Other Results/Comments: Objective General: Alert, oriented, no apparent distress. Lungs: No increased work of breathing. ABX Reporting Has patient been on IV antibiotics over the past 48 hours?: No Assessment/Plan - Problem List (1) Vaginal delivery Impression: Assessment and Plan day 1. 27yo s/p on 11/03/23 following spontaneous labor. - Routine care - See blood loss re: blood transfusion - Anticipate discharge tomorrow (2) Patient is a currently breast-feeding mother Impression: support by RN team continues Some challenges with latch and sustained feeding infant 5% weight loss formula supplementation this morning. Likely to remain inpatient for additional day for continued support and monitoring of feeds/weight (3) Perineal laceration complicating delivery Impression: 2nd degree perineal laceration and bilateral labial laceration with EBL 800, requiring significant repair. Patient self care, reports edema and tenderness but pain otherwise managed with scheduled IBU, tylenol, ice and other topical care. Able to sit in bed and recliner. sleeps better out of hospital bed but feels her bottom is otherwise healing well. (4) Blood loss Impression: Anemia related to acute blood loss. -hgb decrease 11.4g/dL on admission to 6.4g/dL ppd #1 -hct decrease 36.3% on admission to 20.8% ppd #1 . -tachycardia, pulse 112bpm at the time of rounding. See RN vital sign documentation -easily fatigued. -Discussed IV iron vs transfusion PRBC. Patient desires blood transfusion (orders placed for transfusion of 1U PRBC (leukocytes reduced) -daily oral iron ordered to start today. DICK Silva, Student Nurse Painter Barrel <Rachel Javed - Last Filed: 11/04/23 20:31> Objective - Vital Signs/Intake & Output Vital Signs: Vital Signs x48h Temp Pulse Resp BP Pulse Ox 11/04/23 17:30 98.4 F 90 16 132/75 H 99 11/04/23 15:01 98.8 F 81 16 125/73 99 11/04/23 13:59 99.0 F 65 14 110/55 L 99 Intake & Output: Intake & Output 11/01/23 11/02/23 11/03/23 11/04/23 23:59 23:59 23:59 23:59 Intake Total 1500 500 Output Total 2300 Balance -800 500 - Lab Results Fish Bones: 11/04/23 07:06 Other Labs: Lab Results x24hrs 11/04/23 11/03/23 Range/Units 07:06 01:10 WBC 12.9 H (4.8-10.8) x10^3/uL RBC 2.85 L (4.20-5.40) 10^6/uL Hgb 6.4 L* (12.0-16.0) g/dL Hct 20.8 L (37.0-47.0) % MCV 73.0 L (81.0-99.0) fL MCH 22.5 L (27.0-31.0) pg MCHC 30.8 L (32.0-36.0) g/dL RDW 15.3 H (12.0-15.0) % Plt Count 146 (130-450) 10^3/uL MPV 12.4 H (7.9-10.8) fL Neut # (Auto) 9.8 H (1.5-6.6) 10^3/uL Lymph # (Auto) 1.9 (1.5-3.5) 10^3/uL [place] # (Auto) 0.8 (0.0-1.0) 10^3/uL Eos # (Auto) 0.1 (0.0-0.7) 10^3/uL Baso # (Auto) 0.0 (0.0-0.1) 10^3/uL Absolute Nucleated RBC 0.00 x10^3/uL Nucleated RBC % 0.0 /100WBC Blood Type O POSITIVE Antibody Screen NEGATIVE Crossmatch IS Only See Detail Assessment/Plan - Problem List (4) Vaginal delivery Impression: I have evaluated patient with student and agree with the assessment and plan for 1 u PRBC transfused. Rachel Javed MD
[2023-11-04] MEDS ORDERED: diphenhydrAMINE 25 MG CAPSULE PO SCH (10:37)
[2023-11-04] MEDS: SODIUM CHLORIDE 0.9% 1,000 ML IV SCH (11:03)
[2023-11-04] MEDS: SODIUM CHLORIDE 0.9% 500 ML IV ONE (11:18)
[2023-11-04] MEDS: FERROUS SULFATE 325 MG TABLET PO SCH (11:53)
--- NOTE | 2023-11-05 09:35 | Discharge Plan ---
Discharge Plan Problem Reviewed?: Yes Disposition: Home, Self Care Condition: Good Diet: Regular Activity Restrictions: No Restrictions Shower Restrictions: No Driving Restrictions: No Weight Bearing: Full Weight Instruction Topics: Anemia, Breastfeed Holds, Vaginal, Self Care No Smoking: If you smoke, Please STOP! Call for help. Follow-up with: Lucia Finn ARNP [Provider Admit Priv/Credential] -
[2023-11-05 09:38] VITALS: O2SAT 99
--- NOTE | 2023-11-05 09:38 | DISCHARGE SUMMARY ---
<Lucia Finn - Last Filed: 11/05/23 10:28> Discharge Summary Admit Date: 11/03/23 Discharge Date: 11/05/23 Discharging Provider: Dr. Rachel Javed Code Status: Attempt Resuscitation Condition at Discharge: Good Discharge Disposition: 01 Home, Self Care - DIAGNOSES Admission Diagnoses: Date of Admission 11/03/2023 Date of Discharge 11/05/2023 Diagnosis on admission: 1. 27 yo @ 39+2 weeks gestation by LMP, confirmed by 7+5 wk U/S 2. Active labor 3. FHR 140, Cat I 4. GBS NEG Diagnosis on Discharge 1. 27 yo s/p 11/03/2023 (PPD #2) 2. Second degree perineal laceration with bilateral 1st degree labial lacerations, extensive repair 3. Anemia related to acute blood loss at delivery (800cc) H&H decrease from 11.4/36.3% (on admission) to 6.4/20.8% on ppd #1. She received one unit of PRBC on 11/03/2022 and was started on oral iron. PPD#2 H&H increased to 8.8/28.8%. Continued SOA, patient request for IV iron. 4. Brief History: She is a patient of [facility] through the duration of her . She presented to L&D in active labor and progressed quickly to complete. Epidural for labor anesthesia. She spontaneously delivered a viable female apgars 9&9 @ 1 and 5 minutes respectively. EBL 800cc from second degree perineal laceration with extensive repair. She has been doing overall well in her course. Some SOA and tachycardia related to acute blood loss. Received 1u PRBC, and started on oral iron PPD#1 and IV iron dextran 400mg to be administered PPD#2 prior to discharge. She is otherwise ambulating and tolerating a regular diet. She is urinating without difficulty and her lochia is normal. Her pain is well controlled without narcotic management. She will be discharged to home today on PPD #2 and encouraged to continue OTC use of oral iron, IBU, Tylenol and topical management (tucks, hydrocortisone) and as well as stool softeners bowel care. She has a 1 week follow-up appointment scheduled with [facility]. She has been given precautions to call if she has any new or worsening fevers, chills, abdominal pain, increasing bleeding, or foul smelling vaginal lochia. DICK Silva, Student Nurse Senior Behavioral Scientist - ALLERGIES Allergies/Adverse Reactions: Allergies Allergy/AdvReac Type Severity Reaction Status Date / Time No Known Drug Allergies Allergy Verified 11/03/23 01:45 - MEDICATIONS Home Medications: Ambulatory Orders Medication Instructions Recorded Confirmed Ferrous Sulfate [Feosol] 325 mg PO DAILY 11/03/23 11/03/23 No122/Iron/Folic Acid 1 each PO DAILY 11/03/23 11/03/23 [ Multi Tablet] - LABS Result Diagrams: 11/05/23 09:48 <Rachel Javed - Last Filed: 11/05/23 15:29> Discharge Summary - DIAGNOSES Admission Diagnoses: baby was a girl weighing 7 lb 4 oz - PHYSICAL EXAM AT DISCHARGE Respiratory: positive: No respiratory distress Cardiovascular: positive: Regular rate & rhythm Abdomen: positive: Non-tender Neurologic/Psychiatric: positive: Oriented x3 - LABS Result Diagrams: 11/05/23 09:48 - FOLLOW UP Follow Up: 1 week in clinic - TIME SPENT Time Spent in Discharge (Minutes): 15
[2023-11-05] MEDS: DOCUSATE SODIUM 100 MG CAPSULE PO SCH (09:45)
[2023-11-05 09:54] LABS: BASOPHILS # (AUTO) 0.1 10^3/uL (0.0-0.1); BASOPHILS % (AUTO) 0.4 %; EOSINOPHILS # (AUTO) 0.2 10^3/uL (0.0-0.7); EOSINOPHILS % (AUTO) 1.9 %; HCT - HEMATOCRIT 28.1 % (37.0-47.0); HGB - HEMOGLOBIN 8.8 g/dL (12.0-16.0); LYMPHOCYTES # (AUTO) 1.5 10^3/uL (1.5-3.5); MEAN CORPUSCULAR HEMOGLOBIN 23.7 pg (27.0-31.0); MEAN CORPUSCULAR HGB CONC 31.3 g/dL (32.0-36.0); MEAN CORPUSCULAR VOLUME 75.5 fL (81.0-99.0); MEAN PLATELET VOLUME 11.6 fL (7.9-10.8); MONOCYTES # (AUTO) 0.6 10^3/uL (0.0-1.0); MONOCYTES % (AUTO) 5.2 %; NEUTROPHILS % (AUTO) 76.3 %; PLT - PLATELET COUNT 178 10^3/uL (130-450); RED BLOOD COUNT 3.72 10^6/uL (4.20-5.40); RED CELL DISTRIBUTION WIDTH 16.8 % (12.0-15.0); WHITE BLOOD COUNT 11.9 x10^3/uL (4.8-10.8)
--- NOTE | 2023-11-05 10:00 | PROVIDER PROGRESS NOTE ---
Subjective - Prog Note Date Prog Note Date: 11/05/23 Prog Note Time: 09:40 - Subjective Pt reports feeling: No change Subjective: Subjective: Feeling shortness of breath with ambulation but overall well. Denies feeling lightheaded, or dizzy. Ambulating. Comfortable WITHOUT narcotic pain management Lochia appropriate. Denies heavy bleeding. Tolerating oral intake. Diet: Regular. Voiding without difficulty. Passing flatus. Denies BM. Patient is bonding with baby in room going better with RN support Objective - Vital Signs/Intake & Output Reviewed Vital Signs: Yes Vital Signs: Vital Signs x48h Temp Pulse Resp BP Pulse Ox 11/05/23 09:27 37.1 C 81 16 128/7 L 99 11/05/23 05:51 36.8 C 78 18 118/75 100 Intake & Output: Intake & Output 11/02/23 11/03/23 11/04/23 11/05/23 23:59 23:59 23:59 23:59 Intake Total 1500 500 500 Output Total 2300 Balance -800 500 500 - Objective General Appearance: positive: No acute distress Eyes Bilateral: positive: Normal inspection Abdomen: positive: Non-tender Skin: positive: Color nml, Warm, Dry Neurologic/Psychiatric: positive: Oriented x3, Sensation nml, Mood/affect nml - Lab Results Fish Bones: 11/05/23 09:48 Other Labs: Lab Results x24hrs 11/05/23 11/03/23 Range/Units 09:48 01:10 WBC 11.9 H (4.8-10.8) x10^3/uL RBC 3.72 L (4.20-5.40) 10^6/uL Hgb 8.8 L (12.0-16.0) g/dL Hct 28.1 L (37.0-47.0) % MCV 75.5 L (81.0-99.0) fL MCH 23.7 L (27.0-31.0) pg MCHC 31.3 L (32.0-36.0) g/dL RDW 16.8 H (12.0-15.0) % Plt Count 178 (130-450) 10^3/uL MPV 11.6 H (7.9-10.8) fL Neut # (Auto) 9.0 H (1.5-6.6) 10^3/uL Lymph # (Auto) 1.5 (1.5-3.5) 10^3/uL [place] # (Auto) 0.6 (0.0-1.0) 10^3/uL Eos # (Auto) 0.2 (0.0-0.7) 10^3/uL Baso # (Auto) 0.1 (0.0-0.1) 10^3/uL Absolute Nucleated RBC 0.00 x10^3/uL Nucleated RBC % 0.0 /100WBC Blood Type O POSITIVE Antibody Screen NEGATIVE Crossmatch IS Only See Detail ABX Reporting Has patient been on IV antibiotics over the past 48 hours?: No Assessment/Plan - Problem List (1) Vaginal delivery Impression: day 2. 27yo s/p on 10/06/23 following spontaneous onset of labor - Routine care - Anticipate discharge later today. (2) Patient is a currently breast-feeding mother Impression: well. Some continued RN support. Aware of outpatient support resources. (3) Perineal laceration complicating delivery Impression: 2nd degree perineal laceration and bilateral 1st degree labial lacerations Pain well managed with IBU, tylenol and topical management Denies any concern or excessive bleeding from repaired lacerations (4) Blood loss Impression: Acute blood loss from labial laceration following Significant H&H decrease on PP day 1, received 1 unit of PRBC and was started on oral iron Feeling some SOA with ambulation. CBC ordered and pending. If improved, will likely discharge to home. If H&H remains low, will discuss a second unit to be transfused.
[2023-11-05] MEDS: SODIUM CHLORIDE 0.9% IV ONE (10:44)
[2023-11-05] MEDS: IRON DEXTRAN IV ONE (10:44)
--- NOTE | 2023-11-05 19:18 | Labor Flowsheet ---
Labor Flowsheet Datetime Report Generated by CPN: 11/05/2023 19:18 Datetime: 11/05/2023 18:57 VITAL SIGNS NBP Sys/Bhavna/Mean (mmHg): 138 : 76 : 91 Pulse: 68 Datetime: 11/04/2023 15:00 SpO2 (%): 99 Datetime: 11/03/2023 08:30 Temperature (C): 38.2 Temperature Route: Oral Datetime: 11/03/2023 07:15 PAIN Pain Presence: None/Denies Datetime: 11/03/2023 06:24 Membranes Ruptured Date/Time: 11/03/2023 00:00 Membranes Rupture Method: Spontaneous Amniotic Fluid Color: Clear Amniotic Fluid Amount: Moderate Amniotic Fluid Odor: None Datetime: 11/03/2023 06:16 Communication Comments: placenta out Datetime: 11/03/2023 06:00 Stage of : UTERINE ACTIVITY Monitor Mode: External Frequency (min): 60-90 Quality: Strong Pattern: Normal: <= 5 Contractions in 10 Minutes Resting Tone (Palpate): Relaxed ASSESSMENT A Monitor Mode: External US FHR Baseline Rate : 140 Variability: Moderate 6-25 bpm Accelerations: 15X15 Decelerations: Early; Variable Category: Category II Patient Position/Activity: Right Tilt Datetime: 11/03/2023 05:50 LaborFlag: Labor Datetime: 11/03/2023 05:30 Duration (sec): 60-90 Datetime: 11/03/2023 05:09 VAGINAL EXAM Dilatation (cm): 10.0 Effacement (%): 100 Station: 1 Datetime: 11/03/2023 05:06 Comments: RN and CNM at bedside continuously throughout second stage continuously reviewing fht Datetime: 11/03/2023 05:00 Monitor Interventions for UA: [place] Adjusted Datetime: 11/03/2023 04:30 Monitor Interventions for FHR: Ultrasound Adjusted Actions for Decelerations: Side to Side Datetime: 11/03/2023 04:11 COMMUNICATION Communication: RN at Bedside; RN Reviewed Strip Datetime: 11/03/2023 04:00 FHR Baseline Changes: No Baseline Change PATIENT CARE Oxygen Method: Room Air Datetime: 11/03/2023 03:50 Exam by: M. palomares Rn Datetime: 11/03/2023 02:58 Anesthesia Comments: test dose given pt toleratedwell Datetime: 11/03/2023 02:57 Epidural Procedure: Cath Placed Datetime: 11/03/2023 02:20 PROCEDURE TIME OUT Procedure Verify: Correct Patient Identity; Correct Side and Site are Marked; Accurate Procedure Co nsent Form; Agreement on Procedure to be Done; Correct Patient Position; Relevant Images and Results are Properly Labeled and Displayed ANESTHESIA Anesthesia Plans: Epidural Epidural Positioning: Sitting Datetime: 11/03/2023 01:02 Vaginal Bleeding: Normal Show Cervix, Consistency: Soft
[2023-11-05 19:23] VITALS: BP 138/76
== END 2023-11-05 19:10 | disposition home or self-care (01) | DRG 806 ==
LOC: WFO 00:44 → FBP 00:56 → WFO 01:10 → FBP 01:10
PROVIDERS: ADMIT Obstetrics & Gynecology; ATTEND Obstetrics & Gynecology
PROC: 10E0XZZ Delivery of Products of Conception, External Approach (ICD-10-PCS; principal; 2023-11-03)
PROC: 0KQM0ZZ Repair Perineum Muscle, Open Approach (ICD-10-PCS; 2023-11-03)
PROC: 0UQMXZZ Repair Vulva, External Approach (ICD-10-PCS; 2023-11-03)
PROC: 30233N1 Transfusion of Nonautologous Red Blood Cells into Peripheral Vein, Percutaneous Approach (ICD-10-PCS; 2023-11-04)
DX: O70.1 Second degree perineal laceration during delivery (principal); D62 Acute posthemorrhagic anemia; Z37.0 Single live birth; Z3A.39 39 weeks gestation of pregnancy; O90.81 Anemia of the puerperium; O76 Abnormality in fetal heart rate and rhythm complicating labor and delivery
CPT/HCPCS: 36415; 59409; 85025; 86850; 86900; 86901; 86920; 99215; A9270; J1750; J7120; P9016; 84443

== ENCOUNTER 2025-02-09 04:33 | Inpatient (IN) ==
[2025-02-09 06:13] LABS: RUPTURE OF MEMBRANES PLUS NEGATIVE (NEGATIVE)
[2025-02-09] MEDS ORDERED: SODIUM CHLORIDE FLUSH 0.9% 10 ML SYRINGE IVP PRN (06:48)
[2025-02-09] MEDS ORDERED: OXYTOCIN 10 UNIT/ML VIAL IM PRN (06:48)
[2025-02-09] MEDS ORDERED: fentaNYL 100 MCG/2 ML VIAL IVP PRN (06:48)
[2025-02-09] MEDS ORDERED: CARBOPROST TROMETHAMINE 250 MCG/ML VIAL IM PRN (06:48)
[2025-02-09] MEDS ORDERED: METHYLERGONOVINE 0.2 MG/ML VIAL IM PRN (06:48)
[2025-02-09] MEDS ORDERED: LABETALOL 20 MG/4 ML SYRINGE IVP PRN ×5 (06:48→12:46)
[2025-02-09] MEDS ORDERED: hydrALAZINE INJ 20 MG/ML VIAL IVP PRN ×3 (06:48→12:46)
[2025-02-09] MEDS ORDERED: TERBUTALINE 1 MG/ML VIAL SUBQ PRN (06:48)
--- NOTE | 2025-02-09 07:43 | HISTORY & PHYSICAL EXAMINATION ---
Admit History Smoking Status: Never smoker Other Maternal History Other Maternal History: HPI: This 29 yo @ 39+0 weeks by LMP and confirmed by 12+4 week ultrasound. She had been aleksandra irregularly through the night and noted an increase to intensity and frequency after she saw some bloody show at about 0300 this morning. Upon arrival her cervix was 5/70/-1 and vertex with intact membranes by RN exam. ROM + negative. Will likely desire epidural although desires to wait until she's more uncomfortable. She has been a patient of [facility] for the duration of her . has been uncomplicated other than hx of mild anemia and increased bleeding with her last delivery requiring a blood transfusion. ROS: No Headache, visual changes or right upper quadrant abdominal pain. Denies significant N/V. Denies urinary urgency or dysuria. All other symptoms reviewed and were negative except per HPI. In the event of an emergency, accepts the administration of blood products. Recent BP: 117/86 Labs: pending Last u/s EFW: FAS 38% Total maternal weight gain: 24# In the event of an emergency, ACCEPTS the administration of blood products : 11/03/2023, . Increased blood loss during last delivery (800cc) G2: current Medical Hx: Anemia Surgical Hx: none Social Hx: Monogamous with male partner. Stopped drinking alcohol due to . Denies current use of tobacco, marijuana or other recreational drugs. Reports that she is safe in current relationship. Family Hx: Denies family history of congenital anomalies, Cystic Fibrosis or chromosomal abnormalities; HTN - father, mother; Diabetes- father Allergies:Cephalexin Medications:, PNV, iron LMP:05/12/25 CODY by LMP: 02/16/25 U/S: @ 12.4wks c/w LMP dating Final CODY: 02/16/2025 PROBLEMS: -Hx hemorrhage -Type and cross x 2 units at time of delivery -Anemia -FeSO4 once daily Pre- weight:155 BMI: 25.0 Blood type: O+ Antibody screen: Negative CBC: PLT 211 HCT 1.0 HGB 33.5 Rubella: Immune VZV: Immune HBsAg: Negative HepC: NR RPR/AB-EIA: NR HIV: NR Flu: 03/2024 COVID: x3 PAP: 04/29/24 - normal GC/CT: 08/09/2024 Negative HSV: denies in self and partner Genetic Testing:NIPT ordered - Negative AFP- FAS: 10/09/2024 Placenta: Posterior Cord: 3VC CUONG: 15.5 cm EFW: 327g 38th%tile 50gm GCT: 121 TDAP: 12/06/2024 Breast Pump: Rx provided 3rd trimester H/H-11.0-36.0 PLT-206 3rd trimester RPR-nonreactive RSV GBS: 01/23/2025 negative EPDS 6 Delivery plan: Desires epidural for pain management, intends to breastfeed ( struggle with supply last time and breastfed x 4 months), okay all baby meds contraception: Mirena post placental placement Physical exam: Normocephalic, atraumatic Heart RRR w/o M/G/R Lungs CTAB Abdomen gravid, soft, nontender. EFW 3500 FHR baseline 140, moderate variability, + accelerations, no decelerations Contractions palpate moderate every 5 minutes with soft resting tone SVE 5/70/-1 , vertex, membranes intact Bilateral LE's no edema Mood is good. GBS negative Assessment: 29 yo G 2 P 2000 @ 39+0 weeks gestation by 12+4 wk U/S Active Labor FHR 140 Cat I Risk for hemorrhage GBS NEG Plan: Admit to [facility] for augmentation of labor/ Expectant management Continuous monitoring/ Intermittent heart rate auscultation. Jacuzzi PRN. Nitrous oxide PRN. Epidural PRN Maternal Request. Anticipate . HPI Current : Current EDU 02/16/25 Gestation 39 Weeks and 0 Days Para 1 Vital Signs Temperature 37.4 C 02/09/25 05:18 Pulse Rate 89 02/09/25 05:18 Respiratory Rate 18 02/09/25 05:18 Blood Pressure 117/86 02/09/25 05:18 NST Procedure NST Procedure: NST Procedure Start Date 02/09/25 Start Time 05:40 Stop Time 06:10 Vibroacoustic Stimulation Used No Patient States Movement Yes Meds/Allgy Home Medications Ambulatory Orders Medication Instructions Recorded Confirmed ferrous sulfate 325 mg (65 mg 325 mg PO DAILY 11/03/23 02/07/25 iron) tablet vit 122-ferrous fumarate 1 ea PO DAILY 02/07/25 27 mg iron-folic acid 800 mcg tablet ( Multi) Allergies Allergies Allergy/AdvReac Type Severity Reaction Status Date / Time cephalexin Allergy Intermediate Rash Verified 02/07/25 10:23 PFSH Active Problems All Active Problems (Updated 01/24/25 @ 00:00 by ) Vaginal bleeding during (Acute) Supervision of normal (Acute) Screening for breast cancer (Acute) Encounter for screening for malignant neoplasm of cervix (Acute) Blood loss (Acute) Perineal laceration complicating delivery (Acute) Patient is a currently breast-feeding mother (Acute) Vaginal delivery (Acute) Family History Family History (Updated 04/24/24 @ 18:27 by Moni Reeves MA) Mother High blood pressure Father High blood pressure Diabetes Social History Social History (Updated 01/09/25 @ 15:57 by Erica Waldron CNM, PANTS [employer]ER) Smoking Status: Never smoker Do you dip or chew tobacco?: No Do you feel safe in your home environment?: Yes History of physical, verbal, emotional, or financial abuse?: No POLST Patient has POLST: No Physical Abdominal Exam Vital Signs: Temp Pulse Resp BP 37.4 C 89 18 117/86 02/09/25 05:18 02/09/25 05:18 02/09/25 05:18 02/09/25 05:18 Plan for Labor Plan For Labor I expect patient to be DC'd or transferred within 96 hours.: Yes
--- NOTE | 2025-02-09 07:43 | PROVIDER PROGRESS NOTE ---
HPI Current : Current EDU 02/16/25 Gestation 39 Weeks and 0 Days Para 1 Vital Signs Temperature 37.4 C 02/09/25 05:18 Pulse Rate 89 02/09/25 05:18 Respiratory Rate 18 02/09/25 05:18 Blood Pressure 117/86 02/09/25 05:18 Procedures OB Procedure Performed: NST Diagnosis/Indication for NST: Other (labor evaluation) NST Procedure: NST Procedure Start Date 02/09/25 Start Time 05:40 Stop Time 06:10 Vibroacoustic Stimulation Used No Patient States Movement Yes Plan Plan: 29 yo @ 39+0 weeks gestation presents to L&D for triage after increased blood show, intermittent contractions and possible rupture of membranes. GBS negative. Reactive NST. FHR 135-140, moderate variability, + accelerations, negative declerations. ROM + negative. SVE by RN /-1, cephalic, intact. Will admit for labor. Anticipate expectant management.
[2025-02-09] MEDS: LACTATED RINGERS 1,000 ML IV PRN (08:35)
[2025-02-09] MEDS ORDERED: fentaNYL 100 MCG/2 ML VIAL ONE (08:38)
[2025-02-09] MEDS ORDERED: ROPIVACAINE 0.2% 200 MG/100 ML BAG EP ONE (08:38)
[2025-02-09 08:45] LABS: HCT - HEMATOCRIT 38.0 % (37.0-47.0); HGB - HEMOGLOBIN 11.8 g/dL (12.0-16.0); NRBC ABSOLUTE COUNT (AUTO) 0.00 x10^3/uL; NUCLEATED RED BLOOD CELLS AUTO 0.0 /100WBC; PLT - PLATELET COUNT 157 10^3/uL (130-450); RED CELL DISTRIBUTION WIDTH 15.8 % (12.0-15.0)
[2025-02-09] MEDS: LACTATED RINGERS 1,000 ML IV SCH (09:20)
[2025-02-09] MEDS ORDERED: ONDANSETRON 4 MG/2 ML VIAL IVP PRN (10:15)
[2025-02-09] MEDS ORDERED: NALOXONE 0.4 MG/ML VIAL IVP PRN ×2 (10:15→12:46)
[2025-02-09] MEDS ORDERED: METOCLOPRAMIDE 10 MG/2 ML VIAL IVP PRN (10:15)
[2025-02-09] MEDS ORDERED: ROPIVACAINE 0.2% 200 MG/100 ML BAG EP PRN (10:15)
[2025-02-09] MEDS ORDERED: NALBUPHINE 10 MG/ML AMP IVP PRN (10:15)
[2025-02-09] MEDS ORDERED: LACTATED RINGERS 500 ML IV ONE (10:15)
[2025-02-09] MEDS ORDERED: ePHEDrine 50 MG/ML VIAL IVP PRN (10:15)
[2025-02-09] MEDS: OXYTOCIN/SODIUM CHLORIDE 500 ML IV PRN (12:08)
[2025-02-09] MEDS: TRANEXAMIC ACID IN NACL 1,000 MG/100 ML BAG IV PRN (12:10)
[2025-02-09] MEDS: LEVONORGESTREL 20 MCG/24H IUD IY ONE (12:15)
[2025-02-09] MEDS ORDERED: SIMETHICONE CHEW 80 MG TABLET PO PRN (12:46)
[2025-02-09] MEDS ORDERED: LABETALOL 5 MG/1 ML 20 ML MDV IVP PRN (12:46)
[2025-02-09] MEDS ORDERED: OXYTOCIN/SODIUM CHLORIDE 500 ML IV PRN (12:46)
--- NOTE | 2025-02-09 13:01 | DELIVERY NOTE ---
OB Labor and Delivery Note Delivery Comments (Free Text/Narrative) Delivery Comments (Free Text/Narrative): This 29 -year-old, G 2 P 1 @ 39 weeks gestation presented earlier this morning in active labor and in stable condition. Cervix was 5/70/-2 and Vertex presentation by darby's. GBS negative. FHR pattern demonstrated 120-135 baseline in a category I prior to second stage. Normal labor course. Epidural placed upon maternal request. AROM occurred 02/09/2025 @ 10:09, moderate amount of clear fluid. She then progressed to complete/complete and active second stage began. She pushed for approximately 10 minutes and did beautifully. Well supported by nursing team. : Normal spontaneous vaginal delivery of a viable male infant on 02/09/2025 @ 12:06. No nuchal cord. Compound delivery of RIGHT hand. The was placed on maternal abdomen, stimulated, dried and placed skin to skin. Apgars 8 & 9 @ 1 & 5 minutes. The umbilical cord was allowed to stop pulsating at which time it was doubly clamped by delivering provider and cut by FOB. 3VC. Cord blood was obtained. Fundal massage and gently cord traction applied for active management of the third stage, placenta delivered spontaneously and intact and appeared normal. QBL 277cc at the time of this documentation. Given history of hemorrhage TXA and Pitocin bolus where started during 3rd stage. Pitocin administered via IV for hemostasis and allowed to run freely. Placenta was not sent to pathology. Uterine massage was performed until uterus was deemed firm. weight pending at this time. At that point, patient desired a post placental IUD placement. MIRENA. She was counseled on the risks, benefits, alternatives to an IUD, including the increased risk of expulsion when placed in the immediate period. This was discussed with her in clinic prior to delivery, as well as arrival to labor and delivery. We discussed effects on bleeding, expulsion, failure. No questions following counselling Immediately following delivery of the placenta, the Mirena IUD was grasped gentl y with ring forceps, taking care not to crush them the distal part of the IUD. The fundus of the uterus was palpated manually, and the IUD was slowly inserted until the fundus was reached. The IUD was placed, and strings were trimmed above the level of the hymen. Inspection of the perineum noted an second-degree midline laceration largely on previous scar tissue from delivery last year. The laceration was repaired under epidural anesthesia with running 3-0 vicryl rapide, repaired in standards fashion under sterile conditions. Upon re-inspection the patient was hemostatic. Uterus again massaged and found to be firm. Needle and sponge counts were correct. Uterine fundus firm and there is no excessive bleeding. Tissues well approximated. Skin to skin initiated. Family bonding well. Both mother and baby are in stable condition.
[2025-02-09] MEDS: ACETAMINOPHEN 500 MG TABLET PO PRN (16:33)
--- NOTE | 2025-02-09 16:53 | PHARMACY PROGRESS NOTE ---
Best Possible Medication History Admit Date and Time: 02/09/25 [id number] Home Medications Medication Instructions Recorded Confirmed Type ferrous sulfate 325 mg (65 mg 325 mg PO DAILY 11/03/23 02/09/25 History iron) tablet vit 122-ferrous fumarate 1 ea PO DAILY 02/09/25 History 27 mg iron-folic acid 800 mcg tablet ( Multi) Processed by: Pharmacy Medications reviewed in ED?: No Medication History completed: Yes [facility] Statement: As the person ultimately responsible for medication therapy, providers are able to order a medication from an existing home medication list in [facility] via the "Reconcile Routine" prior to Confirmation of that medication by network support analyst. Such practice is discouraged except when the physician, in their clinical judgment, deems that a medical need exists for a medication without regard to previous use.
[2025-02-09] MEDS: IBUPROFEN 600 MG TABLET PO PRN (22:01)
[2025-02-09] MEDS: DOCUSATE SODIUM 100 MG CAPSULE PO SCH (22:01)
--- NOTE | 2025-02-10 08:13 | Discharge Summary ---
Discharge Summary HPI History of Present Illness: Date of Admission: 02/09/2025 Date of Discharge: 02/10/2025 Diagnosis on admission: 29 yo G 2 P 2001 @ 39+0 weeks gestation by 12+4 wk U/S Active Labor FHR 140 Cat I Risk for hemorrhage GBS NEG Diagnosis on Discharge 29 yo s/p 02/09/2025 Unremarkable course Physical exam: Normocephalic, atraumatic No increased work of breathing Normal uterine involution, FF below umbilicus Small/ scant rubra bleeding Minimal perineal discomfort. Bilateral LE's no edema Mood is good. Brief History: This 29 -year-old, G 2 P 1 @ 39 weeks gestation presented earlier this morning in active labor and in stable condition. Cervix was 5/70/-2 and Vertex presentation by darby's. GBS negative. FHR pattern demonstrated 120- 135 baseline in a category I prior to second stage. Normal labor course. Epidural placed upon maternal request. AROM occurred 02/09/2025 @ 10:09, moderate amount of clear fluid. She then progressed to complete/complete and active second stage began. She pushed for approximately 10 minutes and did beautifully. Well supported by nursing team. : Normal spontaneous vaginal delivery of a viable male infant on 02/09/2025 @ 12:06. No nuchal cord. Compound delivery of RIGHT hand. The was placed on maternal abdomen, stimulated, dried and placed skin to skin. Apgars 8 & 9 @ 1 & 5 minutes. The umbilical cord was allowed to stop pulsating at which time it was doubly clamped by delivering provider and cut by FOB. 3VC. Cord blood was obtained. Fundal massage and gently cord traction applied for active management of the third stage, placenta delivered spontaneously and intact and appeared normal. QBL 277cc at the time of this documentation. Given history of hemorrhage TXA and Pitocin bolus where started during 3rd stage. Pitocin administered via IV for hemostasis and allowed to run freely. Placenta was not sent to pathology. Uterine massage was performed until uterus was deemed firm. weight pending at this time. At that point, patient desired a post placental IUD placement. MIRENA. She was counseled on the risks, benefits, alternatives to an IUD, including the increased risk of expulsion when placed in the immediate period. This was discussed with her in clinic prior to delivery, as well as arrival to labor and delivery. We discussed effects on bleeding, expulsion, failure. No questions following counselling Immediately following delivery of the placenta, the Mirena IUD was grasped gently with ring forceps, taking care not to crush them the distal part of the IUD. The fundus of the uterus was palpated manually, and the IUD was slowly inserted until the fundus was reached. The IUD was placed, and strings were trimmed above the level of the hymen. Inspection of the perineum noted an second-degree midline laceration largely on previous scar tissue from delivery last year. The laceration was repaired under epidural anesthesia with running 3-0 vicryl rapide, repaired in standards fashion under sterile conditions. Upon re-inspection the patient was hemostatic. Uterus again massaged and found to be firm She has been doing well in her course. She is ambulating and tolerating a regular diet. She is urinating without difficulty and her lochia is normal. Her pain is well controlled without narcotic management. She will be discharged to home today on day X and encouraged IBU, tylenol and stool softeners PRN. She intends to follow up with [facility] in 1 week for telehealth. She has been given precautions to call if she has any new or worsening sx such as fevers, chills, abdominal pain, increasing bleeding, or foul smelling vaginal lochia. preeclamptic precautions reviewed as well. VZV: immune Rubella: immune RH: O+ ALLERGIES Allergies Allergy/AdvReac Type Severity Reaction Status Date / Time cephalexin Allergy Intermediate Rash Verified 02/07/25 10:23 MEDICATIONS Ambulatory Orders Medication Instructions Recorded Confirmed ferrous sulfate 325 mg (65 mg 325 mg PO DAILY 11/03/23 02/09/25 iron) tablet vit 122-ferrous fumarate 1 ea PO DAILY 02/09/25 27 mg iron-folic acid 800 mcg tablet ( Multi) PHYSICAL EXAM AT DISCHARGE Vital Signs: Vital Signs x48h Temp Pulse Resp BP Pulse Ox 02/10/25 08:33 36.8 C 74 16 115/60 99 LABS 02/09/25 08:10 Discharge Plan Discharge Patient Disposition: 01 Home, Self Care Prescriptions: Continued ferrous sulfate 325 MG tablet 325 mg PO DAILY Multi 1 EACH tablet 1 ea PO DAILY Diet: Regular Print Language: Luxembourgish Patient Instructions: After a Vaginal , Holds
--- NOTE | 2025-02-11 07:43 | PROVIDER PROGRESS NOTE ---
Subjective Subjective Subjective: History of Present Illness: Date of Admission: 02/09/2025 Date of Discharge: 02/10/2025 Diagnosis on admission: 29 yo G 2 P 2001 @ 39+0 weeks gestation by 12+4 wk U/S Active Labor FHR 140 Cat I Risk for hemorrhage GBS NEG Diagnosis on Discharge 29 yo s/p 02/09/2025 PPD #2 Unremarkable course Physical exam: Normocephalic, atraumatic No increased work of breathing Normal uterine involution, FF below umbilicus Small/ scant rubra bleeding Minimal perineal discomfort. Bilateral LE's no edema Mood is good. Brief History: This 29 -year-old, G 2 P 1 @ 39 weeks gestation presented earlier this morning in active labor and in stable condition. Cervix was 5/70/-2 and Vertex presentation by darby's. GBS negative. FHR pattern demonstrated 120- 135 baseline in a category I prior to second stage. Normal labor course. Epidural placed upon maternal request. AROM occurred 02/09/2025 @ 10:09, moderate amount of clear fluid. She then progressed to complete/complete and active second stage began. She pushed for approximately 10 minutes and did beautifully. Well supported by nursing team. : Normal spontaneous vaginal delivery of a viable male on 02/09/2025 @ 12:06. No nuchal cord. Compound delivery of RIGHT hand. The was placed on maternal abdomen, stimulated, dried and placed skin to skin. Apgars 8 & 9 @ 1 & 5 minutes. The umbilical cord was allowed to stop pulsating at which time it was doubly clamped by delivering provider and cut by FOB. 3VC. Cord blood was obtained. Fundal massage and gently cord traction applied for active management of the third stage, placenta delivered spontaneously and intact and appeared normal. QBL 277cc at the time of this documentation. Given history of hemorrhage TXA and Pitocin bolus where started during 3rd stage. Pitocin administered via IV for hemostasis and allowed to run freely. Placenta was not sent to pathology. Uterine massage was performed until uterus was deemed firm. weight pending at this time. At that point, patient desired a post placental IUD placement. MIRENA. She was counseled on the risks, benefits, alternatives to an IUD, including the increased risk of expulsion when placed in the immediate period. This was discussed with her in clinic prior to delivery, as well as arrival to labor and delivery. We discussed effects on bleeding, expulsion, failure. No questions following counselling Immediately following delivery of the placenta, the Mirena IUD was grasped gently with ring forceps, taking care not to crush them the distal part of the IUD. The fundus of the uterus was palpated manually, and the IUD was slowly inserted until the fundus was reached. The IUD was placed, and strings were trimmed above the level of the hymen. Inspection of the perineum noted an second-degree midline laceration largely on previous scar tissue from delivery last year. The laceration was repaired under epidural anesthesia with running 3-0 vicryl rapide, repaired in standards fashion under sterile conditions. Upon re-inspection the patient was hemostatic. Uterus again massaged and found to be firm She has been doing well in her course. She is ambulating and tolerating a regular diet. She is urinating without difficulty and her lochia is normal. Her pain is well controlled without narcotic management. She will be discharged to home today on day X and encouraged IBU, tylenol and stool softeners PRN. She intends to follow up with [facility] in 1 week for telehealth. She has been given precautions to call if she has any new or worsening sx such as fevers, chills, abdominal pain, increasing bleeding, or foul smelling vaginal lochia. preeclamptic precautions reviewed as well. VZV: immune Rubella: immune RH: O+ Current Medications Current Medications Current Medications: Current Medications Generic Name Dose Route Start Last Admin Trade Name Marc PRN Reason Stop Dose Admin Acetaminophen 1,000 mg 02/09/25 12:46 02/10/25 18:17 Acetaminophen 500 Mg Tablet PO 1,000 mg Q8HR PRN Administration Mild Pain or Fever>38C(100.4F) Carboprost Tromethamine 250 mcg 02/09/25 06:48 Carboprost Tromethamine 250 Mcg/Ml Vial IM .ONCE PRN Hemorrhage Diphenhydramine HCl 12.5 - 25 mg 02/09/25 10:15 Diphenhydramine Inj 50 Mg/Ml Vial IVP Q6HR PRN ITCHING Docusate Sodium 100 mg 02/09/25 21:00 02/10/25 21:54 Docusate Sodium 100 Mg Capsule PO 100 mg BID PATTI Administration Ephedrine Sulfate 5 mg 02/09/25 10:15 Ephedrine 50 Mg/Ml Vial IVP Q5M PRN For SBP<100;give until SBP>100 Fentanyl 50 mcg 02/09/25 06:48 Fentanyl 100 Mcg/2 Ml Vial IVP Q1H PRN Severe Pain (score 7-10) Hydralazine HCl 5 - 10 mg 02/09/25 06:48 Hydralazine Inj 20 Mg/Ml Vial IVP Q20M PRN SBP> or= 160 OR DBP> or= 110 Protocol Hydralazine HCl 10 mg 02/09/25 12:46 Hydralazine Inj 20 Mg/Ml Vial IVP .ONCE PRN SBP> or= 160 OR DBP> or= 110 Protocol Hydralazine HCl 5 - 10 mg 02/09/25 12:46 Hydralazine Inj 20 Mg/Ml Vial IVP Q20M PRN SBP >=160 and/or DBP >=110 Protocol Lactated Ringer's 500 mls @ 999 mls/hr 02/09/25 06:48 02/09/25 09:20 Lr IV Infused PRN PRN Infusion Heart Rate Abnormalities Oxytocin/Sodium Chloride 500 mls @ 999 mls/hr 02/09/25 06:48 02/09/25 14:42 Pitocin/Sodium Chloride IV Infused PRN PRN Titration POST- HEMORR PREVENTION Protocol 999 MILLIUNIT/MIN Tranexamic Acid 1,000 mg in 100 mls @ 600 mls/hr 02/09/25 06:48 02/09/25 12:25 Tranexamic 1,000 Mg/100ml-Nacl IV Infused Q30M PRN Infusion EBL >1200mL and within 3hr Lactated Ringer's 1,000 mls @ 125 mls/hr 02/09/25 07:00 02/09/25 14:50 Lr IV 0 mls/hr .Q8H PATTI Infusion Ropivacaine 200 mg in 100 mls @ 0 mls/hr 02/09/25 10:15 Naropin 0.2% EP PRN PRN PAIN Protocol Per Protocol Oxytocin/Sodium Chloride 500 mls @ 999 mls/hr 02/09/25 12:46 Pitocin/Sodium Chloride IV PRN PRN POST- HEMORR PREVENTION Protocol 999 MILLIUNIT/MIN Ibuprofen 600 mg 02/09/25 12:46 02/10/25 21:53 Ibuprofen 600 Mg Tablet PO 600 mg Q6HR PRN Administration Moderate Pain (Level 4-6) Labetalol HCl 20 - 80 mg 02/09/25 06:48 Labetalol 20 Mg/4 Ml Syringe IVP Q10M PRN SBP> or= 160 OR DBP> or= 110 Protocol Labetalol HCl 20 mg 02/09/25 06:48 Labetalol 20 Mg/4 Ml Syringe IVP .ONCE PRN SBP> or= 160 OR DBP> or= 110 Protocol Labetalol HCl 20 - 40 mg 02/09/25 06:48 Labetalol 20 Mg/4 Ml Syringe IVP Q10M PRN SBP> or= 160 OR DBP> or= 110 Protocol Labetalol HCl 20 - 80 mg 02/09/25 12:46 Labetalol 5 Mg/1 Ml 20 Ml Mdv IVP Q10M PRN SBP> or= 160 OR DBP> or= 110 Protocol Labetalol HCl 20 - 40 mg 02/09/25 12:46 Labetalol 20 Mg/4 Ml Syringe IVP Q10M PRN SBP> or= 160 OR DBP> or= 110 Protocol Labetalol HCl 20 mg 02/09/25 12:46 Labetalol 20 Mg/4 Ml Syringe IVP .ONCE PRN SBP >=160 and/or DBP >=110 Protocol Lidocaine HCl 20 ml 02/09/25 06:48 Lidocaine 1% 20 Ml Mdv ID 02/12/25 06:49 .ONCE PRN PERINEAL REPAIR Methylergonovine Maleate 0.2 mg 02/09/25 06:48 Methylergonovine 0.2 Mg/Ml Vial IM .ONCE PRN Hemorrhage Metoclopramide HCl 10 mg 02/09/25 10:15 Metoclopramide 10 Mg/2 Ml Vial IVP Q6HR PRN Nausea / Vomiting Misoprostol 800 mcg 02/09/25 06:48 Misoprostol 200 Mcg Tablet MO .ONCE PRN Hemorrhage Nalbuphine HCl 2.5 - 5 mg 02/09/25 10:15 Nalbuphine 10 Mg/Ml Amp IVP Q4H PRN ITCHING Naloxone HCl 0.1 mg 02/09/25 10:15 Naloxone 0.4 Mg/Ml Vial IVP Q2M PRN RR<8 Naloxone HCl 0.4 mg 02/09/25 12:46 Naloxone 0.4 Mg/Ml Vial IVP .ONCE PRN Opioid Overdose Nifedipine 10 - 20 mg 02/09/25 06:48 Nifedipine 10 Mg Capsule PO Q20M PRN SBP> or= 160 OR DBP> or= 110 Protocol Nifedipine 10 - 20 mg 02/09/25 12:46 Nifedipine 10 Mg Capsule PO Q20M PRN SBP >=160 and/or DBP >=110 Protocol Ondansetron HCl 4 mg 02/09/25 10:15 Ondansetron 4 Mg/2 Ml Vial IVP Q6HR PRN Nausea / Vomiting Oxytocin 10 unit 02/09/25 06:48 Oxytocin 10 Unit/Ml Vial IM .ONCE PRN Step One if no IV access. Simethicone 80 mg 02/09/25 12:46 Simethicone Chew 80 Mg Tablet PO TID PRN Gas Sodium Chloride 10 ml 02/09/25 06:48 Sodium Chloride Flush 0.9% 10 Ml Syringe IVP PRN PRN NEEDED PER PROVIDER ORDERS Terbutaline Sulfate 0.25 mg 02/09/25 06:48 Terbutaline 1 Mg/Ml Vial SUBQ .ONCE PRN Tachystole Objective Vital Signs/Intake & Output Vital Signs: Vital Signs x48h Temp Pulse Resp BP Pulse Ox 02/11/25 05:00 62 16 134/83 H 99 02/11/25 01:34 36.6 C 63 16 118/56 L 99 Intake & Output: Intake & Output 02/08/25 02/09/25 02/10/25 02/11/25 23:59 23:59 23:59 23:59 Intake Total 3038 / 3038 250 / 250 Output Total 1525 / 1525 Balance 1513 / 1513 250 / 250 Weight (kg) 179 lb Lab Results 02/09/25 08:10
--- NOTE | 2025-02-11 07:46 | Discharge Summary ---
Discharge Summary HPI History of Present Illness: History of Present Illness: Date of Admission: 02/09/2025 Date of Discharge: 02/10/2025 Diagnosis on admission: 29 yo G 2 P 2001 @ 39+0 weeks gestation by 12+4 wk U/S Active Labor FHR 140 Cat I Risk for hemorrhage GBS NEG Diagnosis on Discharge 29 yo s/p 02/09/2025 PPD #2 Unremarkable course Physical exam: Normocephalic, atraumatic No increased work of breathing Normal uterine involution, FF below umbilicus Small/ scant rubra bleeding Minimal perineal discomfort. Bilateral LE's no edema Mood is good. Brief History: This 29 -year-old, G 2 P 1 @ 39 weeks gestation presented earlier this morning in active labor and in stable condition. Cervix was 5/70/-2 and Vertex presentation by darby's. GBS negative. FHR pattern demonstrated 120- 135 baseline in a category I prior to second stage. Normal labor course. Epidural placed upon maternal request. AROM occurred 02/09/2025 @ 10:09, moderate amount of clear fluid. She then progressed to complete/complete and active second stage began. She pushed for approximately 10 minutes and did beautifully. Well supported by nursing team. : Normal spontaneous vaginal delivery of a viable male infant on 02/09/2025 @ 12:06. No nuchal cord. Compound delivery of RIGHT hand. The was placed on maternal abdomen, stimulated, dried and placed skin to skin. Apgars 8 & 9 @ 1 & 5 minutes. The umbilical cord was allowed to stop pulsating at which time it was doubly clamped by delivering provider and cut by FOB. 3VC. Cord blood was obtained. Fundal massage and gently cord traction applied for active management of the third stage, placenta delivered spontaneously and intact and appeared normal. QBL 277cc at the time of this documentation. Given history of hemorrhage TXA and Pitocin bolus where started during 3rd stage. Pitocin administered via IV for hemostasis and allowed to run freely. Placenta was not sent to pathology. Uterine massage was performed until uterus was deemed firm. weight pending at this time. At that point, patient desired a post placental IUD placement. MIRENA. She was counseled on the risks, benefits, alternatives to an IUD, including the increased risk of expulsion when placed in the immediate period. This was discussed with her in clinic prior to delivery, as well as arrival to labor and delivery. We discussed effects on bleeding, expulsion, failure. No questions following counselling Immediately following delivery of the placenta, the Mirena IUD was grasped gently with ring forceps, taking care not to crush them the distal part of the IUD. The fundus of the uterus was palpated manually, and the IUD was slowly inserted until the fundus was reached. The IUD was placed, and strings were trimmed above the level of the hymen. Inspection of the perineum noted an second-degree midline laceration largely on previous scar tissue from delivery last year. The laceration was repaired under epidural anesthesia with running 3-0 vicryl rapide, repaired in standards fashion under sterile conditions. Upon re-inspection the patient was hemostatic. Uterus again massaged and found to be firm She has been doing well in her course. She was initially medically cleared and discharged yesterday. However, it was asked that baby stay for some continued observation so yesterday's admission order was cancelled. She is ambulating and tolerating a regular diet. She is urinating without difficulty and her lochia is normal. Her pain is well controlled without narcotic management. She will be discharged to home today on day #2 and encouraged IBU, tylenol and stool softeners PRN. She intends to follow up with [facility] in 1 week for telehealth. She has been given precautions to call if she has any new or worsening sx such as fevers, chills, abdominal pain, increasing bleeding, or foul smelling vaginal lochia. preeclamptic precautions reviewed as well. VZV: immune Rubella: immune RH: O+ ALLERGIES Allergies Allergy/AdvReac Type Severity Reaction Status Date / Time cephalexin Allergy Intermediate Rash Verified 02/07/25 10:23 MEDICATIONS Ambulatory Orders Medication Instructions Recorded Confirmed ferrous sulfate 325 mg (65 mg 325 mg PO DAILY 11/03/23 02/09/25 iron) tablet vit 122-ferrous fumarate 1 ea PO DAILY 02/09/25 27 mg iron-folic acid 800 mcg tablet ( Multi) PHYSICAL EXAM AT DISCHARGE Vital Signs: Vital Signs x48h Temp Pulse Resp BP Pulse Ox 02/11/25 07:41 36.7 C 65 16 108/65 02/11/25 05:00 62 16 134/83 H 99 02/11/25 01:34 36.6 C 63 16 118/56 L 99 LABS 02/09/25 08:10 Discharge Plan Discharge Patient Disposition: Home, Self Care Medically Cleared Date:: 02/11/25 Prescriptions: Continued ferrous sulfate 325 MG tablet 325 mg PO DAILY Multi 1 EACH tablet 1 ea PO DAILY Diet: Regular Print Language: Yakut Patient Instructions: After a Vaginal , Holds
[2025-02-11 10:56] VITALS: BP 122/69; TEMP 98.4; O2SAT 100
--- NOTE | 2025-02-11 11:53 | Labor Flowsheet ---
Labor Flowsheet Datetime Report Generated by CPN: 02/11/2025 11:53 Datetime: 02/11/2025 10:53 VITAL SIGNS NBP Sys/Bhavna/Mean (mmHg): 122 : 69 : 81 Pulse: 79 Datetime: 02/09/2025 15:01 PAIN Pain Scale: 0 Datetime: 02/09/2025 14:01 Stage of : Recovery Datetime: 02/09/2025 13:02 Temperature (C): 37.0 Datetime: 02/09/2025 12:12 STAGE 2 Stage 2 Comments: placenta delivered Datetime: 02/09/2025 12:06 UTERINE ACTIVITY Monitor Mode: External Frequency (min): 2-2.5 pushing Quality: Strong Duration (sec): pushing Resting Tone (Palpate): Relaxed ASSESSMENT A Monitor Mode: External US FHR Baseline Rate : 120 Variability: Moderate 6-25 bpm Accelerations: None Decelerations: Variable Datetime: 02/09/2025 12:01 LaborFlag: Labor Datetime: 02/09/2025 11:48 VAGINAL EXAM Dilatation (cm): 10.0 Effacement (%): 100 Station: 1 Exam by: Lucia CNM Datetime: 02/09/2025 11:40 PATIENT CARE Patient Position/Activity: Left Tilt; Semi-Fowlers I/O Interventions: Clear Liquids Given Datetime: 02/09/2025 10:36 Actions for Decelerations: Side to Side; Sterile Vaginal Exam Provider Reviewed Strip: Yes Patient Care Comments: repositioned into rossana highfowlers COMMUNICATION Communication: Provider at Bedside Datetime: 02/09/2025 10:15 Pattern: Normal: <= 5 Contractions in 10 Minutes Datetime: 02/09/2025 10:09 Membranes Rupture Method: Artificial Amniotic Fluid Color: Clear Amniotic Fluid Amount: Moderate Datetime: 02/09/2025 09:59 Comments: FAVIO decels d/t difficulty tracing during ctx Datetime: 02/09/2025 09:29 Category: Category I Datetime: 02/09/2025 09:20 SpO2 (%): 100 Datetime: 02/09/2025 09:00 Contraction Comments: FAVIO d/t difficulty tracing while sitting for JOSE Monitor Interventions for FHR: Ultrasound Adjusted Datetime: 02/09/2025 08:52 Epidural Procedure: Test Dose Datetime: 02/09/2025 08:43 PROCEDURE TIME OUT Procedure Verify: Correct Patient Identity; Correct Side and Site are Marked; Accurate Procedure Consent Form; Agreement on Procedure to be Done; Correct Patient Position; Safety Precautions Based on Patient History or Medication Use ANESTHESIA Anesthesia Plans: Epidural Epidural Positioning: Sitting Datetime: 02/09/2025 06:40 Provider Notified (Name): CNM Aakash Notification Reason: Status Update; Status; Labor Status; Membrane Status Communication Comments: ROM+ negative; SVE: 5/-1; Admit for labor Datetime: 02/09/2025 06:33 Vaginal Bleeding: Normal Show Cervix, Consistency: Soft Cervix, Position: Midposition Lie 'A': Longitudinal
== END 2025-02-11 11:10 | disposition home or self-care (01) | DRG 807 ==
LOC: WFO 04:33 → FBP 05:07
PROVIDERS: ADMIT Nurse Practitioner; ATTEND Nurse Practitioner